=== PATIENT | male | born 1960 | race Caucasian/White ===

== ENCOUNTER 2025-08-08 08:52 | Inpatient (IN) | payer MEDICARE, SELFPAY ==
[2025-08-08] VITALS (12 sets, daily range): BP systolic 138–170; BP diastolic 93–114; PULSE 70–96; RESP 16–95; TEMP 36.5–36.9; O2SAT 94–99; BMI 39.5
--- NOTE | 2025-08-08 08:58 | EKG_ITS ---
[facility] Test Date: 2025-08-08 Pat Name: LUIS A ROCA Department: Room: - Gender: Male [employer] Business Analyst: : 1960 Requested By: ED Temporary Provider Order Number: [id number] Reading MD: ED Temporary Provider Measurements Intervals [place] Rate: 80 P: 21 IN: 214 QRS: -41 QRSD: 98 T: 68 QT: 366 QTc: 423 Interpretive Statements SINUS RHYTHM WITH FIRST DEGREE AV BLOCK LEFT AXIS DEVIATION [QRS AXIS < -30] No previous ECG available for comparison /[id number]
--- NOTE | 2025-08-08 09:47 | XR_ITS ---
EXAMINATION: PA chest single view TECHNIQUE: Upright PA chest single view Date and time: August 08, 2025, 10:00 a.m. INDICATIONS: Onset chest pain today. FINDINGS: Mild prominence left ventricle. Ectatic thoracic aorta. Mild vascular congestion. No lobar pneumonia or mary lou pulmonary edema IMPRESSION: Mild vascular congestion
--- NOTE | 2025-08-08 09:48 | EDRME_ITS ---
Rapid Medical Screening Exam [facility] Arrival date/time: 08/08/25 08:52 This is a 65-year-old male that comes into the emergency room with complaints of chest pain that started this morning. patient states his chest pain woke him up he describes it as a pressure type and tightness to his chest. Patient states he has never had this type of chest pain before. Patient does report some dizziness. Patient denies fever, cough, nausea, vomiting, diarrhea. Patient does have a history of atrial fibrillation and atrial flutter and has had ablations done in the past. Patient also has a history of pulmonary embolus. Patient checks his blood sugars regularly and states he is not diabetic. Patient does have a history of high blood pressure, hyperlipidemia. Patient states his last hemoglobin A1c was in the fives. I have greeted and performed a focused initial assessment of this patient. Initial appropriate labs ordered at this time. A comprehensive ED assessment and evaluation of the patient and analysis of all test and completion of medical decision making process will be conducted by additional ED provider. Chief Complaint: Chest Pain Time Seen by Provider: 08/08/25 09:42 Vital signs: Vital Signs Temperature 98.2 F 08/08/25 09:22 Pulse Rate 80 08/08/25 09:22 Respiratory Rate 18 08/08/25 09:22 Blood Pressure 154/93 H 08/08/25 09:22 Pulse Oximetry (%) 96 08/08/25 09:22 Oxygen Delivery Method Room Air 08/08/25 09:22 Exam: Alert and oriented, breathing even and unlabored, skin warm and dry Clinical Impression: Chest pain
[2025-08-08 10:12] LABS: Basophils # (Auto) 0.1 Thou/mm3 (0.0-0.2); Basophils % (Auto) 1 % (0-2.5); Eosinophils # (Auto) 0.1 Thou/mm3 (0.0-0.5); Eosinophils % (Auto) 1 % (0-10); Hematocrit 54.5 % (41.0-53.0); Hemoglobin 18.1 g/dL (13.5-16.0); Immature Granulocytes Auto 0.05 Thou/mm3 (0.00-0.00); Lymphocytes # (Auto) 2.6 Thou/mm3 (1.0-4.8); Lymphocytes % (Auto) 38 % (10-50); Mean Corpuscular HGB Conc 33.2 g/dl (31.0-37.0); Mean Corpuscular Hemoglobin 30.6 pg (25.0-35.0); Mean Corpuscular Volume 92 fL (80-100); Monocytes # (Auto) 0.8 Thou/mm3 (0.0-0.8); Monocytes % (Auto) 11 % (0-12); Neutrophils # (Auto) 3.3 Thou/mm3 (1.8-7.7); Neutrophils % (Auto) 48 % (37-80); Nucleated Red Blood Cell # 0.00 Thou/mm3 (0.00-0.00); Nucleated Red Blood Cell % 0 /100 WBC (0); Platelet Count 188 Thou/mm3 (140-440); RDW Standard Deviation 51.5 fL (35.1-43.9); Red Blood Count 5.92 Miln/mm3 (4.50-5.90); White Blood Count 6.8 Thou/mm3 (3.8-10.6)
[2025-08-08 10:24] LABS: INR 1.0 (0.9-1.3); Prothrombin Time 10.8 Seconds (9.0-12.2)
[2025-08-08 10:45] LABS: B-Type Natriuretic Peptide < 20 pg/mL (0-100)
[2025-08-08 10:58] LABS: Alanine Aminotransferase 218 U/L (10-49); Albumin, Serum 5.1 gm/dL (3.4-4.8); Albumin/Globulin Ratio 1.8 (1.2-2.2); Alkaline Phosphatase 68 U/L (46-116); Anion Gap 11 (7-16); Aspartate Amino Transferase 86 U/L (0-34); BUN/Creatinine Ratio 8 Ratio (12-20); Bilirubin,Total 0.7 mg/dL (0.3-1.2); Blood Urea Nitrogen 10 mg/dL (9-23); Calcium 10.0 mg/dL (8.3-10.6); Calcium (Corrected) 10.0 mg/dL (8.5-10.1); Carbon Dioxide 24.6 mMol/L (20.0-31.0); Chloride 106 mMol/L (98-107); Creatinine (Component) 1.2 mg/dL (0.6-1.3); Estimated Creatinine Clearance 87.7 mL/min (>60); Globulin 2.9 gm/dL (2.3-3.5); Glucose 118 mg/dL (74-106); Magnesium 2.0 mg/dL (1.6-2.6); Osmolality,Calculated 283 (275-295); Phosphorous 3.3 mg/dL (2.4-5.1); Potassium 4.9 mMol/L (3.4-5.1); Sodium 142 mMol/L (136-145); Total Protein 8.0 gm/dL (5.7-8.2); eGFR > 60 See Note
[2025-08-08 11:10] LABS: Troponin I 0.380 ng/mL (0.0-0.045)
--- NOTE | 2025-08-08 12:25 | EKG_ITS ---
[facility] Test Date: 2025-08-08 Pat Name: LUIS A ROCA Department: Room: - Gender: Male Social Research Assistant: : 1960 Requested By: Manny Paula Order Number: [id number] Reading MD: Manny Paula Measurements Intervals [place] Rate: 78 P: -12 [place]: 206 QRS: -41 QRSD: 105 T: 8 QT: 383 QTc: 436 Interpretive Statements SINUS RHYTHM LEFT AXIS DEVIATION [QRS AXIS < -30] Compared to ECG 08/08/2025 09:19:05 First degree AV block no longer present /[id number]/S0/[id number]
--- NOTE | 2025-08-08 12:36 | EDNOTE_ITS ---
ED Chest Pain RME/HPI General Chief Complaint: Chest Pain Stated Complaint: CHEST PAIN Time Seen by Provider: 08/08/25 09:42 Arrival date/time: 08/08/25 08:52 Limitations: no limitations RME / HPI RME / HPI narrative: 08/08/25 08:52 This is a 65-year-old male that comes into the emergency room with complaints of chest pain that started this morning. patient states his chest pain woke him up he describes it as a pressure type and tightness to his chest. Patient states he has never had this type of chest pain before. Patient does report some dizziness. Patient denies fever, cough, nausea, vomiting, diarrhea. Patient does have a history of atrial fibrillation and atrial flutter and has had ablations done in the past. Patient also has a history of pulmonary embolus. Patient checks his blood sugars regularly and states he is not diabetic. Patient does have a history of high blood pressure, hyperlipidemia. Patient states his last hemoglobin A1c was in the fives. I have greeted and performed a focused initial assessment of this patient. Initial appropriate labs ordered at this time. A comprehensive ED assessment and evaluation of the patient and analysis of all test and completion of medical decision making process will be conducted by additional ED provider. DR. YESSENIA GALLAGHER ED EVALUATION: 65-year-old male presents to the Emergency Department after waking up with chest pain located in the mid chest, described as dull in nature. He has a history of pulmonary embolism approximately 4 to 5 years ago, atrial fibrillation with flutter, prior angiogram many years ago, hypertension currently controlled, and hypercholesterolemia. He is accompanied by his . He denies diaphoresis or other associated symptoms. He is on Eliquis and took three aspirin tablets this morning. At presentation, he reports the pain has improved and is now mild with some residual tightness. Related Data Allergies Allergy/AdvReac Type Severity Reaction Status Date / Time Sulfa (Sulfonamide Allergy Verified 08/08/25 08:56 Antibiotics) Review of Systems Review of Systems Systems Reviewed: All systems reviewed, normal except as documented Past Medical History Past Medical History CARDIAC: Positive Cardiac Disorders, Atrial Fibrillation (A.FIB/A.FLUTTER; HX ABLATION), Hypercholesterolemia and Hypertension Surgical History SURGICAL: Positive of Shoulder Sx (R SHOULDER SURGERY) and Knee Sx (BILAT. KNEE REPLACEMENT) Social History SMOKING STATUS: Never smoker SUBSTANCE USE: does not use ALCOHOL: Never ED Exam General Limitations: Present no limitations General appearance: Present alert and in no apparent distress Head Head exam: Present atraumatic, normocephalic and normal inspection Eye Eye exam: Present normal appearance, PERRL and EOMI ENT ENT exam: Present normal exam, normal oropharynx and mucous membranes moist Neck Neck exam: Present normal inspection, full ROM and trachea midline Chest Chest inspection: Present normal inspection and symmetric chest wall rise Respiratory Respiratory exam: Present normal lung sounds bilaterally Cardiovascular Cardiovascular exam: Present regular rate, normal rhythm and normal heart sounds Abdominal Exam Abdominal exam: Present soft and normal bowel sounds Extremities Exam Extremities exam: Present normal inspection and full ROM Back Exam Back exam: Present normal inspection and full ROM Neurological Exam Neurological exam: Present alert, oriented X3 and CN II-XII intact Psychiatric Psychiatric exam: Present normal affect and normal mood Skin Skin exam: Present warm, dry, intact and normal color Course Quality Measures none Orders Category Date Time Status Patient Condition Routine Admission 08/08/25 15:[address] Screening NOW Care 08/08/25 14:13 Active Welder Pipe Making STAT Care 08/08/25 12:23 Active Continuous Pulse Oximetry ONCE Care 08/08/25 12:23 Active EKG (ED ONLY) *Do not use* NOW Care 08/08/25 08:58 Completed EKG (ED ONLY) *Do not use* NOW Care 08/08/25 12:25 Completed Insert IV STAT Care 08/08/25 12:23 Active NPO after Midnight ONCE Care 08/08/25 16:19 Active Notify provider NEEDED Care 08/08/25 15:15 Active Notify provider NOW Care 08/08/25 12:25 Active Notify provider NOW Care 08/08/25 14:28 Active Consult to Cardiology Stat Cons 08/08/25 15:30 Ordered Diet Cardiac Diet 08/08/25 Dinner Active Diet NPO after Midnight Diet 08/09/25 00:01 Active CA echo doppler complete Stat Exams 08/08/25 15:[address] angio chest Stat Exams 08/08/25 14:12 Completed EKG (ED Only) Stat Exams 08/08/25 08:58 Draft EKG (ED Only) Stat Exams 08/08/25 12:25 Draft XR chest 1V Stat Exams 08/08/25 09:47 Completed A1C [Glycohemoglobin w (eAG)] AM DRAW Lab 08/09/25 05:00 Ordered BNP [B-Type Natriuretic Peptide] Stat Lab 08/08/25 10:02 Completed CBC AM DRAW Lab 08/09/25 05:00 Ordered CBC AM DRAW Lab 08/10/25 05:00 Ordered CBC AM DRAW Lab 08/11/25 05:00 Ordered CBC Stat Lab 08/08/25 10:02 Completed Comprehensive Metabolic Panel AM DRAW Lab 08/09/25 05:00 Ordered Comprehensive Metabolic Panel AM DRAW Lab 08/10/25 05:00 Ordered Comprehensive Metabolic Panel AM DRAW Lab 08/11/25 05:00 Ordered Comprehensive Metabolic Panel Stat Lab 08/08/25 10:02 Completed Lipase Stat Lab 08/08/25 12:41 Completed Lipid Panel AM DRAW Lab 08/09/25 05:00 Ordered Mag [Magnesium] Stat Lab 08/08/25 10:02 Completed Magnesium AM DRAW Lab 08/09/25 05:00 Ordered Magnesium AM DRAW Lab 08/10/25 05:00 Ordered Magnesium AM DRAW Lab 08/11/25 05:00 Ordered PT [Prothrombin Time with INR] Stat Lab 08/08/25 10:02 Completed Partial Thromboplastin Time AM DRAW Lab 08/10/25 05:00 Ordered Partial Thromboplastin Time Stat Lab 08/08/25 12:41 Completed Phosphorous AM DRAW Lab 08/09/25 05:00 Ordered Phosphorous AM DRAW Lab 08/10/25 05:00 Ordered Phosphorous AM DRAW Lab 08/11/25 05:00 Ordered Phosphorous Stat Lab 08/08/25 10:02 Completed Prothrombin Time with INR AM DRAW Lab 08/10/25 05:00 Ordered TSH [Thyroid Stimulating Hormone] AM DRAW Lab 08/09/25 05:00 Ordered Troponin I Q6H Lab 08/08/25 15:39 Completed Troponin I Q6H Lab 08/09/25 03:30 Ordered Troponin I Stat Lab 08/08/25 10:02 Completed Troponin I Stat Lab 08/08/25 12:41 Completed Troponin I Urgent Lab 08/08/25 19:40 Ordered Troponin I Urgent Lab 08/08/25 23:35 Ordered Acetaminophen Tab [Tylenol Tab] Med 08/08/25 15:14 Active 650 mg PO Q6H PRN Acetaminophen Tab [Tylenol Tab] Med 08/08/25 15:14 Active 650 mg PO Q6H PRN Aspirin Chew Med 08/08/25 12:22 Discontinued 324 mg PO X1 ONE Aspirin [Ecotrin] Med 08/09/25 09:00 Active 81 mg PO QDAY Atorvastatin Calcium [Lipitor] Med 08/08/25 15:30 Active 40 mg PO HS DiphenhydrAMINE INJ [Benadryl Inj] Med 08/08/25 14:29 Discontinued 50 mg IVP X1 ONE Famotidine Inj [Pepcid Inj] Med 08/08/25 14:29 Discontinued 20 mg IVP X1 ONE HYDROcodone*/APAP 5/325 [Dawson 5/325] Med 08/08/25 15:14 Active 1 tab PO Q4HR PRN Heparin Inj Med 08/08/25 12:25 Discontinued 4,000 unit IV X1 ONE Heparin Inj Med 08/08/25 14:28 Discontinued 4,000 unit IV X1 ONE Heparin/D5w 25K 250 ML Ivpb [Heparin in D5w Ivpb] Med 08/08/25 14:30 Active 25,000 unit in 250 ml IV 7.35 units/kg/hr Labetalol* IV [Trandate IV] Med 08/08/25 15:50 Active 10 mg IVP Q4H PRN Levothyroxine Sodium [Synthroid] Med 08/09/25 06:00 Active 88 mcg PO ACBR Levothyroxine Sodium [Synthroid] Med 08/08/25 15:39 Discontinued 88 mcg PO X1 ONE Losartan [Cozaar] Med 08/08/25 15:39 Discontinued 100 mg PO X1 ONE Losartan [Cozaar] Med 08/08/25 17:09 Discontinued 100 mg PO X1 ONE Losartan [Cozaar] Med 08/08/25 15:45 Active 50 mg PO QDAY MethylPREDNISolone.* [SoluMEDROL Inj] Med 08/08/25 14:29 Discontinued 125 mg IVP X1 ONE Metoprolol Tartrate [Lopressor] Med 08/08/25 15:30 Active 50 mg PO BID Sodium Chloride 0.9% 1000 ml [Ns] 1,000 ml Med 08/08/25 15:15 Discontinued IV 75 mls/hr allopurinoL [Zyloprim] Med 08/08/25 15:45 Active 300 mg PO QDAY allopurinoL [Zyloprim] Med 08/08/25 15:39 Discontinued 300 mg PO X1 ONE hydrALAZINE INJ [Apresoline Inj] Med 08/08/25 14:45 Discontinued 10 mg IVP X1 ONE Code Status Routine Oth 08/08/25 15:14 Ordered Oxygen Delivery NOW RT 08/08/25 12:23 Active Vital Signs Vital signs: Vital Signs Temperature 98.2 F 08/08/25 09:22 Pulse Rate 80 08/08/25 09:22 Respiratory Rate 18 08/08/25 09:22 Blood Pressure 154/93 H 08/08/25 09:22 Pulse Oximetry (%) 96 08/08/25 09:22 Oxygen Delivery Method Room Air 08/08/25 09:22 Chest Pain MDM Narrative MDM Narrative:: I, Christina Silva, am scribing for and in the presence of Dr. Liu. 65-year-old male with chest pain on awakening and significant cardiac and thromboembolic history. Symptoms improving but given history of PE, atrial fibrillation, and CAD risk factors, workup initiated to evaluate for cardiac ischemia and thromboembolic disease. Differential diagnoses include ACS, PE recurrence, and noncardiac chest pain. 0931: Consulted with Dr. Chung about EKG. He states that it does not look like a STEMI. My interpretation: EKG performed at 0919 hours, normal sinus rhythm, rate 80, left axis deviation, no ectopy, Q wave in leads 2, 3, and AVF, questionable elevation in the precordial leads but consulted with Dr. Chung and he states that it does not look like a STEMI. My interpretation: EKG #2 performed at 1300 hours, normal sinus rhythm, rate 78, left axis deviation, no ectopy, no signs of acute ischemia, Q wave in leads 2, 3, and AVF 1603: Discussed test HPI, PMHx, lab, radiology results and/or management with resident working with the hospitalist. Will admit for further evaluation and management. Accepts patient for admission. Patient data External records reviewed:: [facility] previous records Clinical information provided by:: patient and spouse Social determinants that could affect healthcare access:: none Patient has the following chronic illnesses:: He has a history of pulmonary embolism approximately 4 to 5 years ago, atrial fibrillation with flutter, prior angiogram many years ago, hypertension currently controlled, and hypercholesterolemia. He is on Eliquis and took three aspirin tablets this morning. How is presenting disease/condition affected by chronic disease/condition?: exacerbated by Evaluation data The following diagnostics were reviewed and interpreted by me:: lab results, radiology exam(s) and EKG tracing(s) (see MDM narrative above for both EKG interpretations) Lab and/or radiology exams considered but not ordered:: none Interpretation Summary: See [facility] narrative above. RADIOLOGY Procedure(s): XR chest 1V Accession Number(s): [id number] cc: Dell Park MD; NO PRIMARY/FAMILY,PHYSICIAN; Sarai Rousseau NP~ EXAMINATION: PA chest single view TECHNIQUE: Upright PA chest single view Date and time: August 08, 2025, 10:00 a.m. INDICATIONS: Onset chest pain today. FINDINGS: Mild prominence left ventricle. Ectatic thoracic aorta. Mild vascular congestion. No lobar pneumonia or mary lou pulmonary edema IMPRESSION: Mild vascular congestion Dictated By: Dell Park MD Procedure(s): CT angio chest Accession Number(s): [id number] cc: Dell Park MD; NO PRIMARY/FAMILY,PHYSICIAN; Manny Liu MD~ Examination: CTA chest with intravenous contrast 2-D reconstructions 3-D reconstructions, vascular Date and time of exam: August 08, 2025, 1513 hours INDICATIONS: Chest pain shortness of breath beginning 1 week ago, history pulmonary artery emboli CTDI: vol (mGy) 35.4 DLP: (mGycm) 617 Technique: Multiple axial sections of the thorax have been obtained. 3 mm slice thickness, from below the hemidiaphragms to above the apices of the lungs. Mediastinal and lung density settings have been obtained. 2-D sagittal and coronal reconstructions. 3-D angiographic renderings, 3-D volume renderings, 3D post processing, vascular maximum intensity projections obtained. Contrast administered is 100 cc Isovue-370. Low dose protocols were performed. One or more of the following dose reduction techniques were used; automated exposure control, adjustment of the mA and/or KV according to patient size, use of iterative reconstruction technique. Findings: No thoracic aortic aneurysmal dilatation or dissection Pulmonary artery segments are not enlarged No pulmonary artery emboli Moderate vascular congestion No lobar pneumonia Minimal pleural disease Liver is irregular in contour with fatty infiltration Spleen is not enlarged No adrenal mass Left renal cyst 4 cm Abdominal aorta is not enlarged Moderate thoracic spondylosis IMPRESSION: No thoracic aortic aneurysmal dilatation or dissection Negative for pulmonary artery emboli No pneumonia or pulmonary edema Minimal pleural disease Suspicious for primary palisading disease Dictated By: Dell Park MD Medications / Prescriptions Medications or Prescriptions considered but not ordered:: none Medication administrations:: Medication Administration History Acetaminophen (Acetaminophen 325 Mg Tablet) 650 mg PO Q6H PRN PRN Reason: Fever >100.4 Stop: 09/07/25 15:13 Acetaminophen (Acetaminophen 325 Mg Tablet) 650 mg PO Q6H PRN PRN Reason: PAIN SCALE 1-3 (mild Stop: 09/07/25 15:13 Hydrocodone Bitart/Acetaminophen (Hydrocodone/Apap 5/325 Tablet) 1 tab PO Q4HR PRN PRN Reason: PAIN SCALE 4-6 (Moderate Stop: 08/13/25 15:13 Allopurinol (Allopurinol 100 Mg Tablet) 300 mg PO QDAY TAWANNA Stop: 09/07/25 15:44 Aspirin (Aspirin Ec 81 Mg Tabec) 81 mg PO QDAY TAWANNA Stop: 09/08/25 08:59 Atorvastatin Calcium (Atorvastatin Calcium 10 Mg Tablet) 40 mg PO HS TAWANNA Stop: 09/07/25 15:29 Heparin Sodium/Dextrose (Heparin In D5w Ivpb) 25,000 unit in 250 mls @ 10.002 mls/hr IV .Q24H TAWANNA; Protocol Stop: 08/22/25 14:29 Last Admin: 08/08/25 15:39 Dose: 7.35 units/kg/hr, 10.002 mls/hr Documented By: EF Co-signed By: DO Labetalol HCl (Labetalol Inj 5 Mg/Ml Vial 4 Ml) 10 mg IVP Q4H PRN PRN Reason: SBP>180 or DBP>110 Stop: 09/07/25 15:49 Levothyroxine Sodium (Levothyroxine Sodium 88 Mcg Tablet) 88 mcg PO ACBR TAWANNA Stop: 09/08/25 05:59 Losartan Potassium (Losartan Potassium 25 Mg Tablet) 50 mg PO QDAY TAWANNA Stop: 09/07/25 15:44 Metoprolol Tartrate (Metoprolol Tartrate 25 Mg Tablet) 50 mg PO BID TAWANNA Stop: 09/07/25 15:29 Discontinued Medications Allopurinol (Allopurinol 100 Mg Tablet) 300 mg PO X1 ONE Stop: 08/08/25 15:40 Last Admin: 08/08/25 16:10 Dose: Not Given Documented By: GM Non-Admin Reason: Cancelled by Provider Aspirin (Aspirin 81 Mg Chew) 324 mg PO X1 ONE Stop: 08/08/25 12:23 Last Admin: 08/08/25 12:55 Dose: Not Given Documented By: GM Non-Admin Reason: Discontinued Diphenhydramine HCl (Diphenhydramine Inj 50 Mg/Ml Vial) 50 mg IVP X1 ONE Stop: 08/08/25 14:30 Last Admin: 08/08/25 14:51 Dose: 50 mg Documented By: GM Famotidine (Famotidine Inj 10 Mg/Ml Vial 2 Ml) 20 mg IVP X1 ONE Stop: 08/08/25 14:30 Last Admin: 08/08/25 14:52 Dose: 20 mg Documented By: GM Heparin Sodium (Porcine) (Heparin Sod Inj 5000 Unit/Ml Vial) 4,000 unit IV X1 ONE; Protocol Stop: 08/08/25 12:26 Last Admin: 08/08/25 12:55 Dose: Not Given Documented By: GM Non-Admin Reason: Discontinued Heparin Sodium (Porcine) (Heparin Sod Inj 5000 Unit/Ml Vial) 4,000 unit IV X1 ONE; Protocol Stop: 08/08/25 14:29 Last Admin: 08/08/25 15:38 Dose: 4,000 unit Documented By: EF Co-signed By: DO Hydralazine HCl (Hydralazine Inj 20 Mg/Ml Vial) 10 mg IVP X1 ONE Stop: 08/08/25 14:46 Sodium Chloride (Ns) 1,000 mls @ 75 mls/hr IV .[id number] TAWANNA Stop: 09/07/25 15:14 Last Admin: 08/08/25 16:10 Dose: Not Given Documented By: GM Non-Admin Reason: Discontinued Levothyroxine Sodium (Levothyroxine Sodium 88 Mcg Tablet) 88 mcg PO X1 ONE Stop: 08/08/25 15:40 Last Admin: 08/08/25 16:10 Dose: Not Given Documented By: GM Non-Admin Reason: Cancelled by Provider Losartan Potassium (Losartan Potassium 25 Mg Tablet) 100 mg PO X1 ONE Stop: 08/08/25 15:40 Last Admin: 08/08/25 16:11 Dose: Not Given Documented By: GM Non-Admin Reason: Cancelled by Provider Losartan Potassium (Losartan Potassium 25 Mg Tablet) 100 mg PO X1 ONE Stop: 08/08/25 17:10 Methylprednisolone Sodium Succinate (Methylprednisolone Sod Succ 62.5 Mg/Ml 2ml Vial) 125 mg IVP X1 ONE Stop: 08/08/25 14:30 Last Admin: 08/08/25 14:49 Dose: 125 mg Documented By: GM see above Consultations Consultation(s) initiated? (list below): Yes Consultation #1 (Physician, Specialty, Details): See MDM narrative above. Diagnosis Chest Pain Differential Diagnosis: other (ACS, PE recurrence, and noncardiac chest pain) Most likely diagnosis given after review of the tests above:: NM Elevated troponin Admission Indicated Admission indicated?: indicated Admission Request Was there a request for admission?: Yes Admission Attestation Admission request attestation: Discussed case with [] from Hospitalist service regarding admission. Discussed patients ED course, exam findings, labs, and radiology results. The Hospitalist [agrees,declines] to accept the patient for admission. Disposition Plan Disposition Plan: Admit Critical Care Time Critical Care Time Critical Care Time: Yes Total Critical Care Time (min.): 45 Attestation: The high probability of sudden, clinically significant deterioration in the patient?s condition required the highest level of my preparedness to intervene urgently. The services I provided to this patient were to treat and/or prevent clinically significant deterioration. Services included the following: chart data review, reviewing nursing notes and/or old charts, documentation time, learning and development consultant collaboration regarding findings and treatment options, medication orders and management, direct patient care, vital sign assessments and ordering, interpreting and reviewing diagnostic studies and lab tests. Aggregate critical care time includes only time during which I was engaged in work directly related to the patient?s care, as described above, whether at bedside or elsewhere in the Emergency Department. It did not include time spent performing other reported procedures or the services of residents, students, nurses or physician assistants. Discharge Plan Plan Patient Disposition: Admit Acute Care w/in Hospital Prescriptions/Referrals Referrals: No Primary/Family,Physician [Primary Care Provider] - In 1 week Problem List Clinical Impression: Myocardial infarct, Elevated troponin Patient/Caregiver Discharge Instructions Print Language: Hungarian Stand Alone Forms: [facility]ena Award Info., Patient Portal Info Letter
[2025-08-08 13:05] LABS: Lipase 31 U/L (12-53); Partial Thromboplastin Time 25.8 Seconds (22.0-36.0)
[2025-08-08 13:10] LABS: Troponin I 0.843 ng/mL (0.0-0.045)
--- NOTE | 2025-08-08 14:02 | PD.IMCONS ---
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[place], chronic anticoagulation with Eliquis Prior history of pulmonary embolism Patient follows up with retail general manager in [place] informs me he had a stress test done last year which was negative Patient was seen in the emergency room with a complaint of chest tightness Initial EKG does not show any acute ST-T wave changes Patient was positive troponin 0.38 Cardiology consultation requested cc:: cc: Meds Home Medications and Allergies Allergies Allergy/AdvReac Type Severity Reaction Status Date / Time Sulfa (Sulfonamide Allergy Verified 08/08/25 08:56 Antibiotics) Exam Vital Signs Temp Pulse Resp BP Pulse Ox O2 Del Method 98.4 F 81 17 165/94 H 95 Room Air 08/08/25 12:24 08/08/25 12:24 08/08/25 12:24 08/08/25 12:24 08/08/25 12:24 08/08/25 12:24 Routine HEENT Exam Head: Present normocephalic and atraumatic Eye: Present EOMI and PERRL ENT: Present mucous membranes moist Routine Neck Exam Neck: Present supple and trachea midline Routine Respiratory Exam Respiratory: Present chest non-tender, lungs clear, normal breath sounds and no resp distress Routine Cardiovascular Exam Cardiovascular: Present RRR Routine Abdominal Exam Abdominal: Present soft and normoactive bowel sounds Routine Extremities Exam Extremities: Present full ROM Routine Skin Exam Skin: Present intact, dry and warm Routine Neurological Exam Neurological: Present alert, oriented X3 and CN II-XII intact Routine Psychiatric Exam Psychiatric: Present normal affect and normal thought process Results Labs 08/08/25 10:02 08/08/25 10:02 Labs: Short CBC 08/08/25 Range/Units 10:02 WBC 6.8 (3.8-10.6) Thou/mm3 Hgb 18.1 H* (13.5-16.0) g/dL Hct 54.5 H (41.0-53.0) % Plt Count 188 (140-440) Thou/mm3 BMP 08/08/25 10:02 Sodium 142 Potassium 4.9 Chloride 106 Carbon Dioxide 24.6 BUN 10 Creatinine 1.2 Glucose 118 H Calcium 10.0 Cardiac Enzymes 08/08/25 08/08/25 Range/Units 10:02 12:41 Troponin I 0.380 H* 0.843 H* D (0.0-0.045) ng/mL Liver Function 08/08/25 Range/Units 10:02 Total Bilirubin 0.7 (0.3-1.2) mg/dL AST 86 H (0-34) U/L ALT 218 H (10-49) U/L Alkaline Phosphatase 68 (46-116) U/L Albumin 5.1 H (3.4-4.8) gm/dL Assessment and Plan Assessment and plan (1) Chest pain: Status: Acute (2) Elevated troponin: Status: Acute (3) Hypertension: Status: Acute (4) Hyperlipidemia: Status: Acute (5) History of atrial fibrillation: Status: Acute (6) Factor V deficiency: Status: Acute (7) History of pulmonary embolism: Status: Acute (8) Polycythemia: Status: Acute Additional Assessment & Plan Additional Plan: Patient was seen in the emergency room Appears comfortable No chest pain currently Recalls having chest pain in the morning described as tightness EKG does not show any acute ST-T wave changes Positive troponin is 0.3 Continue to rule out with serial troponins and EKGs Resume patient's home medication Patient's hemoglobin is 18 hematocrit is 54.5 needs further evaluation
--- NOTE | 2025-08-08 14:12 | XR_ITS ---
Examination: CTA chest with intravenous contrast 2-D reconstructions 3-D reconstructions, vascular Date and time of exam: August 08, 2025, 1513 hours INDICATIONS: Chest pain shortness of breath beginning 1 week ago, history pulmonary artery emboli CTDI: vol (mGy) 35.4 DLP: (mGycm) 617 Technique: Multiple axial sections of the thorax have been obtained. 3 mm slice thickness, from below the hemidiaphragms to above the apices of the lungs. Mediastinal and lung density settings have been obtained. 2-D sagittal and coronal reconstructions. 3-D angiographic renderings, 3-D volume renderings, 3D post processing, vascular maximum intensity projections obtained. Contrast administered is 100 cc Isovue-370. Low dose protocols were performed. One or more of the following dose reduction techniques were used; automated exposure control, adjustment of the mA and/or KV according to patient size, use of iterative reconstruction technique. Findings: No thoracic aortic aneurysmal dilatation or dissection Pulmonary artery segments are not enlarged No pulmonary artery emboli Moderate vascular congestion No lobar pneumonia Minimal pleural disease Liver is irregular in contour with fatty infiltration Spleen is not enlarged No adrenal mass Left renal cyst 4 cm Abdominal aorta is not enlarged Moderate thoracic spondylosis IMPRESSION: No thoracic aortic aneurysmal dilatation or dissection Negative for pulmonary artery emboli No pneumonia or pulmonary edema Minimal pleural disease Suspicious for primary palisading disease
[2025-08-08] MEDS: MethylPREDNISolone SOD SUCC 62.5 MG/ML 2ML VIAL 125 MG IVP (14:49)
[2025-08-08] MEDS: FAMOTIDINE INJ 10 MG/ML VIAL 2 ML 20 MG IVP (14:52)
--- NOTE | 2025-08-08 15:14 | PD.RESHP ---
Documentation for date of: 08/08/25 [facility] History of Present Illness Chief complaint: Chest pain History of present illness: History of present illness: Patient is a 65 yo M with PMH of HTN, HLD, DM, A-fib, A-flutter, PE, hypothyroidism, gout, low testosterone, BRYAN presenting to the ED on 08/08 with new-onset chest pain that began on 08/08 in the AM with 1 continuous episode that woke him up from sleep. Patient has never had this type of chest pain before (cramping pain, not reproducible on palpation); it is radiating to L arm and does not feel like previous PEs. Endorses some dizziness, and improved with 3 aspirin before coming to ED. Patient denies diaphoresis, fever, cough, nausea, vomiting, diarrhea, orthopnea, positional pain. ED course: EKG #1 0919- normal sinus rhythm, rate 80, left axis deviation, no ectopy, Q wave in leads 2, 3, and AVF, questionable elevation in the precordial leads but consulted with Dr. Chung who states it does not look like a STEMI. EKG #2- 1300, normal sinus rhythm, rate 78, left axis deviation, no ectopy, no signs of acute ischemia, Q wave in leads 2, 3, and AVF Labs remarkable for Hgb 18.1 (known polycythemia 2/2 testosterone treatment, patient is regular blood donor every 6 weeks) Troponin- 0.38 on admission, followed by 0.843 CXR- Mild vascular congestion Patient admitted for NSTEMI vs PE workup. Pain improved with nitro PMH: HTN, HLD, DM, A-fib, A-flutter, hypothyroidism, low testosterone, gout, PE, BRYAN PSH: bilateral knee surgery, R shoulder surgery, ablations for a-fib/a-flutter Allergies: Sulfa Social history: Previous smoker, rare EtOH, never drugs Meds: To be reconciled Review of Systems Review of Systems Narrative Review of Systems: General: Denies fevers or chills HEENT: Denies congestion or sore throat Heart: Endorses chest pain not reproducible by palpation and radiating to L arm Lungs: Denies shortness of breath or cough Abdomen: Denies diarrhea, nausea or vomiting, constipation, BRBPR, melena Genitourinary: Denies frequency, urgency, dysuria, hematuria Musculoskeletal: Denies joint pain, denies muscular pain Neurology: Denies numbness, tingling ROS otherwise negative except what is mentioned above. Exam Vital Signs Temp Pulse Resp BP Pulse Ox O2 Del Method 97.9 F 76 16 170/100 H 95 Room Air 08/08/25 14:34 08/08/25 14:43 08/08/25 14:43 08/08/25 14:34 08/08/25 14:34 08/08/25 14:34 Narrative Exam General: A/O x3, no acute distress, well-nourished, well-developed, obese Eyes: PERRL, EOMI. Anicteric, vision grossly intact. Ears: No ear pain, no ear discharge, Hearing grossly intact. Nose: No nasal discharge. Mouth/Throat: Moist mucous membranes, no redness, no lesions. Neck: Neck supple, non-tender, no cervical lymphadenopathy. Lungs: Clear JOSE to auscultation and percussion, No accessory muscle use. Cardio: Normal S1/S2, regular rhythm, no murmurs, no JVD or carotid bruits, no chest pain on palpation Abdomen: Soft, non-tender, no palpable masses, peristalsis present, no guarding or rebound. Extremities: Symmetrical, no significant deformities, no peripheral edema , non-tender, peripheral pulses present. Skin: No rashes, no lesions, warm to touch. Neuro: No focal neurological deficits. Psych: Cooperative, appropriate mood and effect. Results: Labs 08/09/25 05:03 08/09/25 05:03 Labs: Short CBC 08/08/25 Range/Units 10:02 WBC 6.8 (3.8-10.6) Thou/mm3 Hgb 18.1 H* (13.5-16.0) g/dL Hct 54.5 H (41.0-53.0) % Plt Count 188 (140-440) Thou/mm3 BMP 08/08/25 10:02 Sodium 142 Potassium 4.9 Chloride 106 Carbon Dioxide 24.6 BUN 10 Creatinine 1.2 Glucose 118 H Calcium 10.0 Cardiac Enzymes 08/08/25 08/08/25 Range/Units 10:02 12:41 Troponin I 0.380 H* 0.843 H* D (0.0-0.045) ng/mL Liver Function 08/08/25 Range/Units 10:02 Total Bilirubin 0.7 (0.3-1.2) mg/dL AST 86 H (0-34) U/L ALT 218 H (10-49) U/L Alkaline Phosphatase 68 (46-116) U/L Albumin 5.1 H (3.4-4.8) gm/dL Quality Measures Quality Measures none Advance care planning discussed with:: other Medications Home Medications and Allergies Home Medications ?Medication ?Instructions ?Recorded ?Confirmed ?Type allopurinol 300 mg tablet 300 mg PO DAILY 08/08/25 08/08/25 History apixaban 5 mg tablet (Eliquis) 5 mg PO Q12H 08/08/25 08/08/25 History diltiazem HCl 180 mg 180 mg PO BID 08/08/25 08/08/25 History capsule,extended release 24 hr, controlled (DILT-XR) levothyroxine 88 mcg tablet 88 mcg PO DAILY 08/08/25 08/08/25 History losartan 100 mg tablet 100 mg PO DAILY 08/08/25 08/08/25 History metformin 1,000 mg tablet 1,000 mg PO BID 08/08/25 08/08/25 History rosuvastatin 5 mg tablet 5 mg PO .BEFORE BED TIME 08/08/25 08/08/25 History thyroid (pork) 120 mg tablet (SUPERVISING NURSE 120 mg PO QDAY 08/08/25 08/08/25 History Thyroid) Allergies Allergy/AdvReac Type Severity Reaction Status Date / Time Sulfa (Sulfonamide Allergy Verified 08/08/25 08:56 Antibiotics) Visit Medications Heparin Sodium/Dextrose (Heparin In D5w Ivpb) 25,000 unit in 250 mls @ 10.002 mls/hr IV .Q24H [facility]; Protocol Stop: 08/22/25 14:29 Discontinued Medications Aspirin (Aspirin 81 Mg Chew) 324 mg PO X1 ONE Stop: 08/08/25 12:23 Last Admin: 08/08/25 12:55 Dose: Not Given Diphenhydramine HCl (Diphenhydramine Inj 50 Mg/Ml Vial) 50 mg IVP X1 ONE Stop: 08/08/25 14:30 Last Admin: 08/08/25 14:51 Dose: 50 mg Famotidine (Famotidine Inj 10 Mg/Ml Vial 2 Ml) 20 mg IVP X1 ONE Stop: 08/08/25 14:30 Last Admin: 08/08/25 14:52 Dose: 20 mg Heparin Sodium (Porcine) (Heparin Sod Inj 5000 Unit/Ml Vial) 4,000 unit IV X1 ONE; Protocol Stop: 08/08/25 12:26 Last Admin: 08/08/25 12:55 Dose: Not Given Heparin Sodium (Porcine) (Heparin Sod Inj 5000 Unit/Ml Vial) 4,000 unit IV X1 ONE; Protocol Stop: 08/08/25 14:29 Hydralazine HCl (Hydralazine Inj 20 Mg/Ml Vial) 10 mg IVP X1 ONE Stop: 08/08/25 14:46 Methylprednisolone Sodium Succinate (Methylprednisolone Sod Succ 62.5 Mg/Ml 2ml Vial) 125 mg IVP X1 ONE Stop: 08/08/25 14:30 Last Admin: 08/08/25 14:49 Dose: 125 mg Assessment & Plan Plan Patient is a 65 yo M with PMH of HTN, HLD, DM, A-fib, A-flutter, PE, hypothyroidism, gout, low testosterone, BRYAN presenting to the ED on 08/08 with new-onset chest pain. Patient admitted for NSTEMI vs PE workup. #ACS vs PE #CAD #Hx of A-fib #Hx of A-flutter #Hx of PE Patient had cramping pain, not reproducible on palpation radiating to L arm since this AM. EKG #1 0919- normal sinus rhythm, rate 80, left axis deviation, no ectopy, Q wave in leads 2, 3, and AVF, questionable elevation in the precordial leads but consulted with Dr. Chung who states it does not look like a STEMI. EKG #2- 1300, normal sinus rhythm, rate 78, left axis deviation, no ectopy, no signs of acute ischemia, Q wave in leads 2, 3, and AVF Troponin- 0.38 on admission, followed by 0.843 Patient has had a-fib and a-flutter with ablations on Eliquis Plan: Cardiology consulted, likely NSTEMI- will do cath in AM On heparin protocol Aspirin 325 given, on 81 qday maintenance Atorvastatin 40 daily Metoprolol tartrate 50 BID Losartan 50 Trend troponin q4h until peaked CTA taken, awaiting read Echo ordered #Hx DM Patient takes metformin at home Plan: ISS step 1 #Polycythemia #Low testosterone on treatment #BRYAN Plan: Continue with outpatient phlebotomies CPAP at night #Hx HTN Plan: As above, plus labetalol 10 q4h prn if SBP > 180 or DBP > 110 #Hx gout #Hx hypothyroidism Resume home allopurinol and levothyroxine Disposition: Tele DVT prophylaxis: Heparin protocol GI prophylaxis: Diet: Cardiac, NPO after midnight Lines: PIV CODE STATUS: Full This case was discussed with my attending physician, Dr. Powell, and senior resident, Dr. Dean. Senior Resident Attestation: The patient is a 65-year-old gentleman with past medical history significant for hypertension, hyperlipidemia, diabetes mellitus type 2, atrial fibrillation and atrial flutter, pulmonary embolism, hypothyroidism, gout, low testosterone on testosterone therapy, BRYAN who presented to ED on 08/08/2025 with chief complaint of chest pain that began on the morning, and woke him up from sleep, he reported never having similar episode of chest pain, reported radiating to left arm, and improved with 3 aspirin before coming to ED. The pain is not positional, not reproducible, and denies any orthopnea or PND, nausea or vomiting or diaphoresis or fever. The patient's troponin was 0.38 that trended up to 0.843, and Dr. Chung was consulted, who believed that the EKG was not significant for STEMI, and he believed it would be likely an NSTEMI type I. The patient was started on heparin drip, 325 mg aspirin chewable given in the ED, started on metoprolol titrate, losartan, atorvastatin, and CTA chest was negative for pulmonary embolism. Will continue to trend troponin until delta is achieved, and patient will undergo left cardiac cath by Dr. Chung tomorrow AM. We will keep the patient n.p.o. after midnight. The patient also has history of obstructive sleep apnea, and we will continue with CPAP at night. A1c, lipid panel and TSH ordered for am labs. I discussed with and supervised the internet manager physician involved in the care of this patient. I personally saw and examined the patient and discussed the assessment and plan with the entire medicine team, including my attending. I agree with the assessment and plan as documented above. Mario Dean MD PGY3 Internal Medicine Ion Mendoza Russo, PGY1 Attending Provider Attestation/Addendum I have seen and examined the patient. I was physically present for the saldana portions of the services provided including history, physical exam, diagnosis, treatment plans and orders. I agree with assessment and plan of care as documented by residents. After examination of the patient and review of the clinical data I feel that this patient needs admission to the hospital for further treatment/evaluation. Even though this this note was carefully revised there may still be minor errors in [employer] manager due to voice recognition software. Dale Powell MD
--- NOTE | 2025-08-08 15:28 | ECHO_ITS ---
Patient Info Name: David Johnson Age: 65 years : 1960 Gender: Male Ht: 185 cm Wt: 136 kg BSA: 2.70 m2 BP: 170 / 100 mmHg HR: 81 bpm Exam Date: 08/08/2025 4:26 PM Admit Date: 08/08/2025 Site: [facility] Room Number: ED 10 Patient Status: I Technical Quality: Poor Exam Type: CA echo doppler complete Reason for Poor Study: body habitus Gold Leaf Laborer: Domenica Salazar Ordering Physician: Aaron Russo Study Info Indications Suspected AK - Primary Location: S2NX Left Ventricular Outflow Tract Name Value Normal LVOT Doppler LVOT Peak Velocity 108 cm/s LVOT Mean Gradient 3 mmHg LVOT VTI 27 cm LVOT VTI/AV VTI Ratio 0.8 Pulmonic Valve Name Value Normal PV Doppler PV Peak Velocity 110 cm/s Mitral Valve Name Value Normal MV Doppler MV Mean Gradient 1 mmHg MV Decel [place] 441 cm/s2 MV PHT 40 ms MV Area (PHT) 5.5 cm2 4.0-5.0 MV Diastolic Function MV E Peak Velocity 61 cm/s MV A Peak Velocity 89 cm/s MV E/A 0.7 MV Annular TDI MV Septal e' Velocity 6.6 cm/s MV E/e' (Septal) 9.1 MV Lateral e' Velocity 4.2 cm/s MV E/e' (Lateral) 14.3 MV e' Average 5.44 cm/s MV E/e' (Average) 11.7 Tricuspid Valve Name Value Normal TV Regurgitation Doppler TR Peak Velocity 148 cm/s Estimated PAP/RSVP RA Pressure 8 mmHg <=5 PA Systolic Pressure 17 mmHg <36 RV Systolic Pressure 17 mmHg <36 Aortic Valve Name Value Normal AV 2D/MM AV Cusp Sep (MM) 2.4 cm AV Doppler AV Peak Velocity 135 cm/s AV Mean Gradient 5 mmHg AV VTI 32 cm AV DI (Bj) 0.80 Ventricles Name Value Normal LV Dimensions 2D/MM IVS Diastolic Thickness (2D) 1.3 cm 0.6-1.0 LVID Diastole (2D) 5.4 cm 4.2-5.8 LVIW Diastolic Thickness (2D) 1.8 cm 0.6-1.0 LVID Systole (2D) 4.0 cm 2.5-4.0 LV Mass (2D Cubed) 380.54 g 88.00-224.00 LV Mass Index (2D Cubed) 141 g/m2 49-115 Relative Wall Thickness (2D) 0.67 <=0.42 IVS/LVIW Diastolic Thickness (2D) 0.72 0.00-1.50 LV Fractional Shortening/Ejection Fraction 2D/MM LV Fractional Shortening (2D) 26 % 25-43 LV EF (2D Teichholz) 50 % Atria Name Value Normal LA Dimensions LA Volume (4C A-L) 154 ml Left Ventricle Left ventricular chamber dimension is normal. Left ventricular systolic function is normal with visually estimated ejection fraction of 50-55%. There is mild concentric hypertrophy noted in the left ventricle. Left ventricular segmental wall motion is normal. There is grade I diastolic dysfunction in the left ventricle. Right Ventricle Right ventricular chamber dimension is normal. Right ventricular systolic function is normal. Left Atrium Left atrial chamber dimension is severely enlarged. Right Atrium Right atrial chamber dimension is normal. Aortic Valve The aortic valve is trileaflet. There is no aortic valve sclerosis. There is no aortic valve stenosis. There is no aortic valve regurgitation. Pulmonic Valve The pulmonic valve is normal. There is no pulmonic valve stenosis. There is no pulmonic regurgitation. Mitral Valve The mitral valve has normal leaflets. There is no mitral valve stenosis. There is mild mitral valve regurgitation. Tricuspid Valve The tricuspid valve leaflets are normal. There is no tricuspid valve stenosis. There is mild tricuspid valve regurgitation. No pulmonary hypertension, estimated pulmonary arterial systolic pressure is 17 mmHg and systemic blood pressure of 170 mmHg in systole. Pericardium/Pleural The pericardium appears normal. There is no pericardial effusion. No pleural effusion visualized. Inferior Vena Cava Normal inferior vena cava with >50% collapse upon inspiration consistent with normal right atrial pressure, 8 mmHg. Aorta The aortic measurements are indexed to age and body surface area. The aortic root at the sinus of Valsalva is not well visualized. The prox ascending aorta is not well visualized. Summary 1. Left ventricle size is normal and systolic function is normal. Estimated ejection fraction is 50-55%. There is grade I diastolic dysfunction. There is mild concentric hypertrophy noted. 2. The right ventricle is not well visualized. 3. Right ventricle chamber size is normal and systolic function is normal. Estimated RVSP is 17 mmHg. 4. There is mild mitral and tricuspid valve regurgitation. 5. The left atrium is severely enlarged. The right atrium is normal. 6. Normal IVC with estimated RA pressure 8 mmHg. Report Signatures Finalized by Apolinar Chung on 08/10/2025 08:46 AM
[2025-08-08] MEDS: HEPARIN SOD INJ 5000 UNIT/ML VIAL 4000 UNIT IV ×2 (15:38→23:57)
[2025-08-08] MEDS: Heparin/D5w 25K 250 ML Ivpb 25,000 UNIT/250 ML BAG 10.002 UNIT IV (15:39)
[2025-08-08 16:34] LABS: Troponin I 2.166 ng/mL (0.0-0.045)
--- NOTE | 2025-08-08 16:49 | PRELIM_ITS ---
CT angiogram of the chest with intravenous contrast (axial sections with sagittal and coronal reformats) August 08, 2025 1513 hours Clinical History: Chest pain Technique:Helical axial sections with sagittal and coronal reformats of the chest were obtained with intravenous contrast. Iterative reconstruction technique was employed to reduce patient radiation exposure. 3D/MIP reconstructed images were also provided. Radiation Dose: Total exam DLP 617 mGy/cm. Compared with the prior study dated Findings: There is no filling defect within the pulmonary artery divisions to suggest pulmonary thromboembolism. The mediastinum demonstrates no evidence of mass or lymphadenopathy. The thoracic aorta is unremarkable. There is no pericardial effusion. Bibasilar atelectasis is seen. No evidence of pleural effusion or pneumothorax. A small hiatal hernia is present. Degenerative changes are identified in the spine. There is fatty infiltration of the liver. There is a left renal cyst, measuring 4.5 cm. Impression: No CT evidence of pulmonary thromboembolism or other acute intrathoracic pathology. Report Electronically Signed By: Lawrence Gutiérrez 08/08/2025 4:48:39 PM [EST]
[2025-08-08] MEDS: METOPROLOL TARTRATE 25 MG TABLET 50 MG PO ×2 (17:48→21:36)
[2025-08-08] MEDS: hydrALAZINE INJ 20 MG/ML VIAL 10 MG IVP (17:58)
[2025-08-08 20:00] LABS: Troponin I 1.929 ng/mL (0.0-0.045)
[2025-08-08 23:42] LABS: Partial Thromboplastin Time 27.1 Seconds (22.0-36.0)
[2025-08-08 23:46] LABS: Troponin I 1.917 ng/mL (0.0-0.045)
[2025-08-09] VITALS (11 sets, daily range): BP systolic 128–153; BP diastolic 78–95; PULSE 81–100; RESP 14–95; TEMP 35.9–36.4; O2SAT 92–95; BMI 40.8
[2025-08-09 03:34] LABS: Troponin I 2.523 ng/mL (0.0-0.045)
[2025-08-09] MEDS: LEVOTHYROXINE SODIUM 88 MCG TABLET PO (05:31)
[2025-08-09 06:13] LABS: Basophils # (Auto) 0.0 Thou/mm3 (0.0-0.2); Basophils % (Auto) 0 % (0-2.5); Eosinophils # (Auto) 0.0 Thou/mm3 (0.0-0.5); Eosinophils % (Auto) 0 % (0-10); Hematocrit 51.8 % (41.0-53.0); Hemoglobin 17.4 g/dL (13.5-16.0); Immature Granulocytes Auto 0.04 Thou/mm3 (0.00-0.00); Lymphocytes # (Auto) 1.3 Thou/mm3 (1.0-4.8); Lymphocytes % (Auto) 11 % (10-50); Mean Corpuscular HGB Conc 33.6 g/dl (31.0-37.0); Mean Corpuscular Hemoglobin 31.0 pg (25.0-35.0); Mean Corpuscular Volume 92 fL (80-100); Monocytes # (Auto) 0.5 Thou/mm3 (0.0-0.8); Monocytes % (Auto) 4 % (0-12); Neutrophils # (Auto) 9.7 Thou/mm3 (1.8-7.7); Neutrophils % (Auto) 84 % (37-80); Nucleated Red Blood Cell # 0.00 Thou/mm3 (0.00-0.00); Nucleated Red Blood Cell % 0 /100 WBC (0); Platelet Count 175 Thou/mm3 (140-440); RDW Standard Deviation 51.7 fL (35.1-43.9); Red Blood Count 5.62 Miln/mm3 (4.50-5.90); White Blood Count 11.5 Thou/mm3 (3.8-10.6)
[2025-08-09 06:20] LABS: Partial Thromboplastin Time 31.9 Seconds (22.0-36.0)
[2025-08-09 06:38] LABS: Alanine Aminotransferase 181 U/L (10-49); Albumin, Serum 4.6 gm/dL (3.4-4.8); Albumin/Globulin Ratio 1.6 (1.2-2.2); Alkaline Phosphatase 62 U/L (46-116); Anion Gap 12 (7-16); Aspartate Amino Transferase 94 U/L (0-34); BUN/Creatinine Ratio 9 Ratio (12-20); Bilirubin,Total 0.6 mg/dL (0.3-1.2); Blood Urea Nitrogen 11 mg/dL (9-23); Calcium 9.7 mg/dL (8.3-10.6); Calcium (Corrected) 9.7 mg/dL (8.5-10.1); Carbon Dioxide 21.7 mMol/L (20.0-31.0); Cardiac Risk Estimate 5.6 RATIO (4.0-6.7); Chloride 106 mMol/L (98-107); Cholesterol 184 mg/dL (132-200); Creatinine (Component) 1.2 mg/dL (0.6-1.3); Estimated Creatinine Clearance 89.2 mL/min (>60); Globulin 2.8 gm/dL (2.3-3.5); Glucose 151 mg/dL (74-106); HDL Cholesterol 33 mg/dL (40-60); LDL Cholesterol,Calculated 136 mg/dL (0-130); Magnesium 1.8 mg/dL (1.6-2.6); Osmolality,Calculated 281 (275-295); Phosphorous 2.5 mg/dL (2.4-5.1); Potassium 4.6 mMol/L (3.4-5.1); Sodium 140 mMol/L (136-145); Thyroid Stimulating Hormone 1.03 uIU/mL (0.55-4.78); Total Protein 7.4 gm/dL (5.7-8.2); Triglycerides 73 mg/dL (30-150); eGFR > 60 See Note
[2025-08-09] MEDS: HEPARIN SOD INJ 5000 UNIT/ML VIAL 4000 UNIT IV (06:43)
[2025-08-09 07:16] LABS: Glucose Estimated Average 126 mg/dL (80-131); Hemoglobin A1C 6.0 % Hgb (4.8-6.0)
--- NOTE | 2025-08-09 08:14 | PD.IMPROG ---
Documentation for date of: 08/09/25 Subjective Subjective Interval history: no furthre chest pain troponin peaked at 2.5 Exam Vital Signs Temp Pulse Resp BP Pulse Ox O2 Del Method 97.0 F 87 18 133/94 H 95 Room Air 08/09/25 08:00 08/09/25 08:00 08/09/25 08:00 08/09/25 08:00 08/09/25 08:00 08/09/25 08:00 Routine HEENT Exam Head: Present normocephalic and atraumatic Eye: Present EOMI and PERRL ENT: Present mucous membranes moist Routine Neck Exam Neck: Present supple and trachea midline Routine Respiratory Exam Respiratory: Present chest non-tender, lungs clear, normal breath sounds and no resp distress Routine Cardiovascular Exam Cardiovascular: Present RRR Routine Abdominal Exam Abdominal: Present soft and normoactive bowel sounds Routine Extremities Exam Extremities: Present full ROM Routine Skin Exam Skin: Present intact, dry and warm Routine Neurological Exam Neurological: Present alert, oriented X3 and CN II-XII intact Routine Psychiatric Exam Psychiatric: Present normal affect and normal thought process Objective Labs 08/09/25 05:03 08/09/25 05:03 Labs: Laboratory Results - last 24 hr 08/08/25 08/08/25 08/08/25 10:02 12:41 15:39 WBC 6.8 RBC 5.92 H Hgb 18.1 H* Hct 54.5 H MCV 92 MCH 30.6 MCHC 33.2 RDW Std Deviation 51.5 H Plt Count 188 Neut % (Auto) 48 Lymph % (Auto) 38 [place] % (Auto) 11 Eos % (Auto) 1 Baso % (Auto) 1 Neut # (Auto) 3.3 Lymph # (Auto) 2.6 [place] # (Auto) 0.8 Eos # (Auto) 0.1 Baso # (Auto) 0.1 Immature Gran # (Auto) 0.05 H Absolute Nucleated RBC 0.00 Immature Gran % 1 H Nucleated RBC % 0 PT 10.8 INR 1.0 APTT 25.8 Sodium 142 Potassium 4.9 Chloride 106 Carbon Dioxide 24.6 Anion Gap 11 BUN 10 Creatinine 1.2 Estim Creat Clear Calc 87.7 eGFR > 60 BUN/Creatinine Ratio 8 L Glucose [address] Glu mg/dL Hemoglobin A1c Calculated Osmolality 283 Calcium 10.0 Corrected Calcium 10.0 Phosphorus 3.3 Magnesium 2.0 Total Bilirubin 0.7 AST 86 H ALT 218 H Alkaline Phosphatase 68 Troponin I 0.380 H* 0.843 H* D 2.166 H* D B-Natriuretic Peptide < 20 Total Protein 8.0 Albumin 5.1 H Globulin 2.9 Albumin/Globulin Ratio 1.8 Triglycerides Cholesterol LDL Cholesterol, Calc HDL Cholesterol Cholesterol/HDL Ratio Lipase 31 TSH 08/08/25 08/08/25 08/09/25 19:35 23:01 02:54 WBC RBC Hgb Hct MCV MCH MCHC RDW Std Deviation Plt Count Neut % (Auto) Lymph % (Auto) [place] % (Auto) Eos % (Auto) Baso % (Auto) Neut # (Auto) Lymph # (Auto) [place] # (Auto) Eos # (Auto) Baso # (Auto) Immature Gran # (Auto) Absolute Nucleated RBC Immature Gran % Nucleated RBC % PT INR APTT 27.1 Sodium Potassium Chloride Carbon Dioxide Anion Gap BUN Creatinine Estim Creat Clear Calc eGFR BUN/Creatinine Ratio Glucose Estimated Ave Glu mg/dL Hemoglobin A1c Calculated Osmolality Calcium Corrected Calcium Phosphorus Magnesium Total Bilirubin AST ALT Alkaline Phosphatase Troponin I 1.929 H* D 1.917 H* 2.523 H* D B-Natriuretic Peptide Total Protein Albumin Globulin Albumin/Globulin Ratio Triglycerides Cholesterol LDL Cholesterol, Calc HDL Cholesterol Cholesterol/HDL Ratio Lipase TSH 08/09/25 05:03 WBC 11.5 H D RBC 5.62 Hgb 17.4 H Hct 51.8 MCV 92 MCH 31.0 MCHC 33.6 RDW Std Deviation 51.7 H Plt Count 175 Neut % (Auto) 84 H Lymph % (Auto) 11 [place] % (Auto) 4 Eos % (Auto) 0 Baso % (Auto) 0 Neut # (Auto) 9.7 H Lymph # (Auto) 1.3 [place] # (Auto) 0.5 Eos # (Auto) 0.0 Baso # (Auto) 0.0 Immature Gran # (Auto) 0.04 H Absolute Nucleated RBC 0.00 Immature Gran % 0 Nucleated RBC % 0 PT INR APTT 31.9 Sodium 140 Potassium 4.6 Chloride 106 Carbon Dioxide 21.7 Anion Gap 12 BUN 11 Creatinine 1.2 Estim Creat Clear Calc 89.2 eGFR > 60 BUN/Creatinine Ratio 9 L Glucose [address] Glu mg/dL 126 Hemoglobin A1c 6.0 Calculated Osmolality 281 Calcium 9.7 Corrected Calcium 9.7 Phosphorus 2.5 Magnesium 1.8 Total Bilirubin 0.6 AST 94 H ALT 181 H Alkaline Phosphatase 62 Troponin I B-Natriuretic Peptide Total Protein 7.4 Albumin 4.6 D Globulin 2.8 Albumin/Globulin Ratio 1.6 Triglycerides 73 Cholesterol 184 LDL Cholesterol, Calc 136 H HDL Cholesterol 33 L Cholesterol/HDL Ratio 5.6 Lipase TSH 1.03 Assessment & Plan A&P Narrative peaked at 2.5 heart cath tomorrow Time Spent With Patient Time: Total time spent is greater than 50% in coordination of care (as documented) at patient's floor/unit and/or counseling patient:
[2025-08-09] MEDS: METOPROLOL TARTRATE 25 MG TABLET 50 MG PO ×2 (09:21→21:03)
[2025-08-09] MEDS: LOSARTAN POTASSIUM 25 MG TABLET 50 MG PO (09:21)
[2025-08-09] MEDS: ASPIRIN EC 81 MG TABEC PO (09:21)
--- NOTE | 2025-08-09 09:21 | PC.SS ---
Follow up note: Pending cardio cath.
[2025-08-09] MEDS: Heparin/D5w 25K 250 ML Ivpb 25,000 UNIT/250 ML BAG 20.888 UNIT IV (09:29)
--- NOTE | 2025-08-09 09:59 | ESPR_ITS ---
<Statement entered by Jessica Chicas MD - 08/10/25 07:27> Patient was seen and examined by me personally. I have directly supervised and reviewed documentation by the team resident and agree with its findings with any exceptions or additional findings as below. Plan of care was discussed with the attending, Dr. Hall. No overnight events, however the patient's troponin does continue to uptrend. Throughout today, troponin trended from 2.523 up to 5.473. Patient continues to deny any chest pain, shortness of breath, lightheadedness, or any other symptoms. Will continue heparin drip, cath is schedule for tomorrow per cardiology. Jessica Chicas, PGY-3 Documentation for date of: 08/09/25 Subjective Subjective Interval history: Patient seen and examined at bedside; no acute events overnight. Latest troponin 3.879 and has not peaked; will get cath tomorrow per Dr. Chung. NPO after midnight. Exam Vital Signs Temp Pulse Resp BP Pulse Ox O2 Del Method 97.0 F 87 18 133/94 H 95 Room Air 08/09/25 08:00 08/09/25 09:21 08/09/25 08:00 08/09/25 09:21 08/09/25 08:00 08/09/25 08:00 Narrative Exam General: A/O x3, no acute distress, well-nourished, well-developed, obese Eyes: PERRL, EOMI. Anicteric, vision grossly intact. Ears: No ear pain, no ear discharge, Hearing grossly intact. Nose: No nasal discharge. Mouth/Throat: Moist mucous membranes, no redness, no lesions. Neck: Neck supple, non-tender, no cervical lymphadenopathy. Lungs: Clear JOSE to auscultation and percussion, No accessory muscle use. Cardio: Normal S1/S2, regular rhythm, no murmurs, no JVD or carotid bruits, no chest pain on palpation Abdomen: Soft, non-tender, no palpable masses, peristalsis present, no guarding or rebound. Extremities: Symmetrical, no significant deformities, no peripheral edema , non-tender, peripheral pulses present. Skin: No rashes, no lesions, warm to touch. Neuro: No focal neurological deficits. Psych: Cooperative, appropriate mood and effect. Objective Labs 08/09/25 05:03 08/09/25 05:03 Labs: Laboratory Results - last 24 hr 08/08/25 08/08/25 08/08/25 10:02 12:41 15:39 WBC 6.8 RBC 5.92 H Hgb 18.1 H* Hct 54.5 H MCV 92 MCH 30.6 MCHC 33.2 RDW Std Deviation 51.5 H Plt Count 188 Neut % (Auto) 48 Lymph % (Auto) 38 [place] % (Auto) 11 Eos % (Auto) 1 Baso % (Auto) 1 Neut # (Auto) 3.3 Lymph # (Auto) 2.6 [place] # (Auto) 0.8 Eos # (Auto) 0.1 Baso # (Auto) 0.1 Immature Gran # (Auto) 0.05 H Absolute Nucleated RBC 0.00 Immature Gran % 1 H Nucleated RBC % 0 PT 10.8 INR 1.0 APTT 25.8 Sodium 142 Potassium 4.9 Chloride 106 Carbon Dioxide 24.6 Anion Gap 11 BUN 10 Creatinine 1.2 Estim Creat Clear Calc 87.7 eGFR > 60 BUN/Creatinine Ratio 8 L Glucose [address] Glu mg/dL Hemoglobin A1c Calculated Osmolality 283 Calcium 10.0 Corrected Calcium 10.0 Phosphorus 3.3 Magnesium 2.0 Total Bilirubin 0.7 AST 86 H ALT 218 H Alkaline Phosphatase 68 Troponin I 0.380 H* 0.843 H* D 2.166 H* D B-Natriuretic Peptide < 20 Total Protein 8.0 Albumin 5.1 H Globulin 2.9 Albumin/Globulin Ratio 1.8 Triglycerides Cholesterol LDL Cholesterol, Calc HDL Cholesterol Cholesterol/HDL Ratio Lipase 31 TSH 08/08/25 08/08/25 08/09/25 19:35 23:01 02:54 WBC RBC Hgb Hct MCV MCH MCHC RDW Std Deviation Plt Count Neut % (Auto) Lymph % (Auto) [place] % (Auto) Eos % (Auto) Baso % (Auto) Neut # (Auto) Lymph # (Auto) [place] # (Auto) Eos # (Auto) Baso # (Auto) Immature Gran # (Auto) Absolute Nucleated RBC Immature Gran % Nucleated RBC % PT INR APTT 27.1 Sodium Potassium Chloride Carbon Dioxide Anion Gap BUN Creatinine Estim Creat Clear Calc eGFR BUN/Creatinine Ratio Glucose Estimated Ave Glu mg/dL Hemoglobin A1c Calculated Osmolality Calcium Corrected Calcium Phosphorus Magnesium Total Bilirubin AST ALT Alkaline Phosphatase Troponin I 1.929 H* D 1.917 H* 2.523 H* D B-Natriuretic Peptide Total Protein Albumin Globulin Albumin/Globulin Ratio Triglycerides Cholesterol LDL Cholesterol, Calc HDL Cholesterol Cholesterol/HDL Ratio Lipase TSH 08/09/25 05:03 WBC 11.5 H D RBC 5.62 Hgb 17.4 H Hct 51.8 MCV 92 MCH 31.0 MCHC 33.6 RDW Std Deviation 51.7 H Plt Count 175 Neut % (Auto) 84 H Lymph % (Auto) 11 [place] % (Auto) 4 Eos % (Auto) 0 Baso % (Auto) 0 Neut # (Auto) 9.7 H Lymph # (Auto) 1.3 [place] # (Auto) 0.5 Eos # (Auto) 0.0 Baso # (Auto) 0.0 Immature Gran # (Auto) 0.04 H Absolute Nucleated RBC 0.00 Immature Gran % 0 Nucleated RBC % 0 PT INR APTT 31.9 Sodium 140 Potassium 4.6 Chloride 106 Carbon Dioxide 21.7 Anion Gap 12 BUN 11 Creatinine 1.2 Estim Creat Clear Calc 89.2 eGFR > 60 BUN/Creatinine Ratio 9 L Glucose [address] Glu mg/dL 126 Hemoglobin A1c 6.0 Calculated Osmolality 281 Calcium 9.7 Corrected Calcium 9.7 Phosphorus 2.5 Magnesium 1.8 Total Bilirubin 0.6 AST 94 H ALT 181 H Alkaline Phosphatase 62 Troponin I B-Natriuretic Peptide Total Protein 7.4 Albumin 4.6 D Globulin 2.8 Albumin/Globulin Ratio 1.6 Triglycerides 73 Cholesterol 184 LDL Cholesterol, Calc 136 H HDL Cholesterol 33 L Cholesterol/HDL Ratio 5.6 Lipase TSH 1.03 Quality Measures Quality Measures none Advance care planning discussed with:: other Assessment & Plan Assessment Current Active Medications: Generic Name Dose Route Start Last Admin Trade Name Freq PRN Reason Stop Dose Admin Acetaminophen 650 mg 08/08/25 15:14 Acetaminophen 325 Mg Tablet PO 09/07/25 15:13 Q6H PRN Fever >100.4 Acetaminophen 650 mg 08/08/25 15:14 Acetaminophen 325 Mg Tablet PO 09/07/25 15:13 Q6H PRN PAIN SCALE 1-3 (mild Hydrocodone Bitart/Acetaminophen 1 tab 08/08/25 15:14 Hydrocodone/Apap 5/325 Tablet PO 08/13/25 15:13 Q4HR PRN PAIN SCALE 4-6 (Moderate Allopurinol 300 mg 08/08/25 15:45 08/09/25 09:22 Allopurinol 100 Mg Tablet PO 09/07/25 15:44 300 mg QDAY TAWANNA Administration Aspirin 81 mg 08/09/25 09:00 08/09/25 09:21 Aspirin Ec 81 Mg Tabec PO 09/08/25 08:59 81 mg QDAY TAWANNA Administration Rosuvastatin 5 Mg 0 ea 08/08/25 18:45 08/08/25 19:34 Tablet PO 09/07/25 18:44 4 tablet HS TAWANNA Administration Heparin Sodium/Dextrose 25,000 unit in 250 mls @ 10.002 mls/hr 08/08/25 14:30 08/09/25 09:29 Heparin In D5w Ivpb IV 08/22/25 14:29 15.35 units/kg/hr .Q24H TAWANNA 20.888 mls/hr Protocol Administration 7.35 UNITS/KG/HR Labetalol HCl 10 mg 08/08/25 15:50 Labetalol Inj 5 Mg/Ml Vial 4 Ml IVP 09/07/25 15:49 Q4H PRN SBP>180 or DBP>110 Levothyroxine Sodium 88 mcg 08/09/25 06:00 08/09/25 05:31 Levothyroxine Sodium 88 Mcg Tablet PO 09/08/25 05:59 88 mcg ACBR TAWANNA Administration Losartan Potassium 50 mg 08/08/25 15:45 08/09/25 09:21 Losartan Potassium 25 Mg Tablet PO 09/07/25 15:44 50 mg QDAY TAWANNA Administration Metoprolol Tartrate 50 mg 08/08/25 15:30 08/09/25 09:21 Metoprolol Tartrate 25 Mg Tablet PO 09/07/25 15:29 50 mg BID TAWANNA Administration Plan Patient is a 65 yo M with PMH of HTN, HLD, DM, A-fib, A-flutter, PE, hypothyroidism, gout, low testosterone, BRYAN presenting to the ED on 08/08 with new-onset chest pain. Patient admitted for NSTEMI vs PE workup. #ACS #CAD #Hx of A-fib #Hx of A-flutter #Hx of PE Patient had cramping pain, not reproducible on palpation radiating to L arm since this AM. EKG #1 0971- normal sinus rhythm, rate 80, left axis deviation, no ectopy, Q wave in leads 2, 3, and AVF, questionable elevation in the precordial leads but consulted with Dr. Chung who states it does not look like a STEMI. EKG #2- 1300, normal sinus rhythm, rate 78, left axis deviation, no ectopy, no signs of acute ischemia, Q wave in leads 2, 3, and AVF Troponin- 0.38 on admission, latest 3.879 Patient has had a-fib and a-flutter with ablations on Eliquis CTA negative Plan: Cardiology consulted, likely NSTEMI- will do cath in AM On heparin drip Aspirin 81 qday Atorvastatin 40 daily Metoprolol tartrate 50 BID Losartan 50 Trend troponin q4h until peaked Echo ordered #Hx DM Patient takes metformin at home BG 151 this morning Plan: ISS step 1 #Polycythemia #Low testosterone on treatment #BRYAN Plan: Continue with outpatient phlebotomies CPAP at night #Hx HTN Plan: As above, plus labetalol 10 q4h prn if SBP > 180 or DBP > 110 #Hx gout #Hx hypothyroidism Resume home allopurinol and levothyroxine Disposition: Tele DVT prophylaxis: Heparin protocol GI prophylaxis: Diet: Cardiac, NPO after midnight Lines: PIV CODE STATUS: Full This case was discussed with my attending physician, Dr. Hall, and senior resident, Dr. Chicas. Aaron Russo, PGY1 Attending Provider Attestation/Addendum I have discussed and was present for the essential components of the history, physical examination, diagnosis, and treatment plan with the resident. I agree with the patient's care as documented by the resident and amended herein by me. Poli Hall DO. Although this document has been carefully reviewed, there may still be some phonetic and other typographical errors. These errors are purely grammatical due to imperfections in the software program and should not be construed in any way to compromise the substance of the patient's medical care during this visit. - Pending SNF placement, may go today if suitable facility is found
[2025-08-09 10:41] LABS: Troponin I 3.879 ng/mL (0.0-0.045)
[2025-08-09 11:15] LABS: Partial Thromboplastin Time 47.0 Seconds (22.0-36.0)
[2025-08-09] MEDS: HEPARIN SOD INJ 5000 UNIT/ML VIAL 2000 UNIT IVP (12:14)
[2025-08-09 13:37] LABS: Troponin I 5.107 ng/mL (0.0-0.045)
[2025-08-09] MEDS: CLOPIDOGREL BISULFATE 75 MG TABLET PO (15:04)
[2025-08-09 16:53] LABS: Troponin I 5.473 ng/mL (0.0-0.045)
[2025-08-09 18:52] LABS: Partial Thromboplastin Time 47.2 Seconds (22.0-36.0)
[2025-08-09] MEDS: HEPARIN SOD INJ 5000 UNIT/ML VIAL 2000 UNIT IV (19:46)
[2025-08-09 20:42] LABS: Troponin I 6.921 ng/mL (0.0-0.045)
[2025-08-09] MEDS: Heparin/D5w 25K 250 ML Ivpb 25,000 UNIT/250 ML BAG 26.331 UNIT IV (21:03)
[2025-08-09] MEDS: ATORVASTATIN CALCIUM 10 MG TABLET 40 MG PO (22:07)
[2025-08-10] VITALS (20 sets, daily range): BP systolic 114–170; BP diastolic 69–106; PULSE 69–103; RESP 12–94; TEMP 35.9–36.5; O2SAT 91–97; BMI 40.8
[2025-08-10 00:05] LABS: Troponin I 7.942 ng/mL (0.0-0.045)
[2025-08-10 02:45] LABS: INR 1.0 (0.9-1.3); Partial Thromboplastin Time 62.9 Seconds (22.0-36.0); Prothrombin Time 11.0 Seconds (9.0-12.2)
[2025-08-10] MEDS: LEVOTHYROXINE SODIUM 88 MCG TABLET PO (05:55)
[2025-08-10] MEDS: Heparin/D5w 25K 250 ML Ivpb 25,000 UNIT/250 ML BAG 26.331 UNIT IV ×2 (05:55→23:29)
[2025-08-10 06:19] LABS: Basophils # (Auto) 0.1 Thou/mm3 (0.0-0.2); Basophils % (Auto) 1 % (0-2.5); Eosinophils # (Auto) 0.1 Thou/mm3 (0.0-0.5); Eosinophils % (Auto) 1 % (0-10); Hematocrit 50.2 % (41.0-53.0); Hemoglobin 16.5 g/dL (13.5-16.0); Immature Granulocytes Auto 0.06 Thou/mm3 (0.00-0.00); Lymphocytes # (Auto) 3.4 Thou/mm3 (1.0-4.8); Lymphocytes % (Auto) 27 % (10-50); Mean Corpuscular HGB Conc 32.9 g/dl (31.0-37.0); Mean Corpuscular Hemoglobin 30.5 pg (25.0-35.0); Mean Corpuscular Volume 93 fL (80-100); Monocytes # (Auto) 1.3 Thou/mm3 (0.0-0.8); Monocytes % (Auto) 10 % (0-12); Neutrophils # (Auto) 7.9 Thou/mm3 (1.8-7.7); Neutrophils % (Auto) 62 % (37-80); Nucleated Red Blood Cell # 0.00 Thou/mm3 (0.00-0.00); Nucleated Red Blood Cell % 0 /100 WBC (0); Platelet Count 183 Thou/mm3 (140-440); RDW Standard Deviation 52.3 fL (35.1-43.9); Red Blood Count 5.41 Miln/mm3 (4.50-5.90); White Blood Count 12.7 Thou/mm3 (3.8-10.6)
[2025-08-10 06:46] LABS: Alanine Aminotransferase 133 U/L (10-49); Albumin, Serum 4.4 gm/dL (3.4-4.8); Albumin/Globulin Ratio 1.7 (1.2-2.2); Alkaline Phosphatase 57 U/L (46-116); Anion Gap 9 (7-16); Aspartate Amino Transferase 97 U/L (0-34); BUN/Creatinine Ratio 17 Ratio (12-20); Bilirubin,Total 0.6 mg/dL (0.3-1.2); Blood Urea Nitrogen 22 mg/dL (9-23); Calcium 9.2 mg/dL (8.3-10.6); Calcium (Corrected) 9.2 mg/dL (8.5-10.1); Carbon Dioxide 24.4 mMol/L (20.0-31.0); Chloride 108 mMol/L (98-107); Creatinine (Component) 1.3 mg/dL (0.6-1.3); Estimated Creatinine Clearance 82.4 mL/min (>60); Globulin 2.6 gm/dL (2.3-3.5); Glucose 119 mg/dL (74-106); Magnesium 1.9 mg/dL (1.6-2.6); Osmolality,Calculated 285 (275-295); Phosphorous 4.3 mg/dL (2.4-5.1); Potassium 4.4 mMol/L (3.4-5.1); Sodium 141 mMol/L (136-145); Total Protein 7.0 gm/dL (5.7-8.2); eGFR > 60 See Note
[2025-08-10] MEDS: CLOPIDOGREL BISULFATE 75 MG TABLET PO (08:26)
[2025-08-10] MEDS: ASPIRIN EC 81 MG TABEC PO (08:26)
--- NOTE | 2025-08-10 08:58 | ESPR_ITS ---
Documentation for date of: 08/10/25 Subjective Subjective Interval history: Patient denies any chest pain Non-ST elevation RI Heart catheter today Exam Vital Signs Temp Pulse Resp BP Pulse Ox O2 Del Method 97.6 F 82 17 136/94 H 95 Room Air 08/10/25 07:53 08/10/25 08:29 08/10/25 08:29 08/10/25 08:29 08/10/25 08:29 08/10/25 08:29 Routine HEENT Exam Head: Present normocephalic and atraumatic Eye: Present EOMI and PERRL ENT: Present mucous membranes moist Routine Neck Exam Neck: Present supple and trachea midline Routine Respiratory Exam Respiratory: Present chest non-tender, lungs clear, normal breath sounds and no resp distress Routine Cardiovascular Exam Cardiovascular: Present RRR Routine Abdominal Exam Abdominal: Present soft and normoactive bowel sounds Routine Extremities Exam Extremities: Present full ROM Routine Skin Exam Skin: Present intact, dry and warm Routine Neurological Exam Neurological: Present alert, oriented X3 and CN II-XII intact Routine Psychiatric Exam Psychiatric: Present normal affect and normal thought process Objective Labs 08/10/25 05:50 08/10/25 05:50 Labs: Laboratory Results - last 24 hr 08/09/25 08/09/25 08/09/25 09:17 10:41 12:35 WBC RBC Hgb Hct MCV MCH MCHC RDW Std Deviation Plt Count Neut % (Auto) Lymph % (Auto) [place] % (Auto) Eos % (Auto) Baso % (Auto) Neut # (Auto) Lymph # (Auto) [place] # (Auto) Eos # (Auto) Baso # (Auto) Immature Gran # (Auto) Absolute Nucleated RBC Immature Gran % Nucleated RBC % PT INR APTT 47.0 H D Sodium Potassium Chloride Carbon Dioxide Anion Gap BUN Creatinine Estim Creat Clear Calc eGFR BUN/Creatinine Ratio Glucose Calculated Osmolality Calcium Corrected Calcium Phosphorus Magnesium Total Bilirubin AST ALT Alkaline Phosphatase Troponin I 3.879 H* D 5.107 H* D Total Protein Albumin Globulin Albumin/Globulin Ratio 08/09/25 08/09/25 08/09/25 16:13 18:23 19:51 WBC RBC Hgb Hct MCV MCH MCHC RDW Std Deviation Plt Count Neut % (Auto) Lymph % (Auto) [place] % (Auto) Eos % (Auto) Baso % (Auto) Neut # (Auto) Lymph # (Auto) [place] # (Auto) Eos # (Auto) Baso # (Auto) Immature Gran # (Auto) Absolute Nucleated RBC Immature Gran % Nucleated RBC % PT INR APTT 47.2 H Sodium Potassium Chloride Carbon Dioxide Anion Gap BUN Creatinine Estim Creat Clear Calc eGFR BUN/Creatinine Ratio Glucose Calculated Osmolality Calcium Corrected Calcium Phosphorus Magnesium Total Bilirubin AST ALT Alkaline Phosphatase Troponin I 5.473 H* D 6.921 H* D Total Protein Albumin Globulin Albumin/Globulin Ratio 08/09/25 08/10/25 08/10/25 23:36 01:56 05:50 WBC 12.7 H RBC 5.41 Hgb 16.5 H Hct 50.2 MCV 93 MCH 30.5 MCHC 32.9 RDW Std Deviation 52.3 H Plt Count 183 Neut % (Auto) 62 Lymph % (Auto) 27 [place] % (Auto) 10 Eos % (Auto) 1 Baso % (Auto) 1 Neut # (Auto) 7.9 H Lymph # (Auto) 3.4 [place] # (Auto) 1.3 H Eos # (Auto) 0.1 Baso # (Auto) 0.1 Immature Gran # (Auto) 0.06 H Absolute Nucleated RBC 0.00 Immature Gran % 1 H Nucleated RBC % 0 PT 11.0 INR 1.0 APTT 62.9 H D Sodium 141 Potassium 4.4 Chloride 108 H Carbon Dioxide 24.4 Anion Gap 9 BUN 22 Creatinine 1.3 Estim Creat Clear Calc 82.4 eGFR > 60 BUN/Creatinine Ratio 17 Glucose 119 H Calculated Osmolality 285 Calcium 9.2 Corrected Calcium 9.2 Phosphorus 4.3 Magnesium 1.9 Total Bilirubin 0.6 AST 97 H ALT 133 H Alkaline Phosphatase 57 Troponin I 7.942 H* D 10.270 H* D Total Protein 7.0 Albumin 4.4 Globulin 2.6 Albumin/Globulin Ratio 1.7 Assessment & Plan A&P Narrative peaked 5 Heart cath today w Time Spent With Patient Time: Total time spent is greater than 50% in coordination of care (as documented) at patient's floor/unit and/or counseling patient:
--- NOTE | 2025-08-10 09:13 | PD.RESPRO ---
Documentation for date of: 08/10/25 Exam Vital Signs Temp Pulse Resp BP Pulse Ox O2 Del Method 97.6 F 82 17 136/94 H 95 Room Air 08/10/25 07:53 08/10/25 08:29 08/10/25 08:29 08/10/25 08:29 08/10/25 08:29 08/10/25 08:29 Objective Labs 08/10/25 05:50 08/10/25 05:50 Labs: Laboratory Results - last 24 hr 08/09/25 08/09/25 08/09/25 09:17 10:41 12:35 WBC RBC Hgb Hct MCV MCH MCHC RDW Std Deviation Plt Count Neut % (Auto) Lymph % (Auto) [place] % (Auto) Eos % (Auto) Baso % (Auto) Neut # (Auto) Lymph # (Auto) [place] # (Auto) Eos # (Auto) Baso # (Auto) Immature Gran # (Auto) Absolute Nucleated RBC Immature Gran % Nucleated RBC % PT INR APTT 47.0 H D Sodium Potassium Chloride Carbon Dioxide Anion Gap BUN Creatinine Estim Creat Clear Calc eGFR BUN/Creatinine Ratio Glucose Calculated Osmolality Calcium Corrected Calcium Phosphorus Magnesium Total Bilirubin AST ALT Alkaline Phosphatase Troponin I 3.879 H* D 5.107 H* D Total Protein Albumin Globulin Albumin/Globulin Ratio 08/09/25 08/09/25 08/09/25 16:13 18:23 19:51 WBC RBC Hgb Hct MCV MCH MCHC RDW Std Deviation Plt Count Neut % (Auto) Lymph % (Auto) [place] % (Auto) Eos % (Auto) Baso % (Auto) Neut # (Auto) Lymph # (Auto) [place] # (Auto) Eos # (Auto) Baso # (Auto) Immature Gran # (Auto) Absolute Nucleated RBC Immature Gran % Nucleated RBC % PT INR APTT 47.2 H Sodium Potassium Chloride Carbon Dioxide Anion Gap BUN Creatinine Estim Creat Clear Calc eGFR BUN/Creatinine Ratio Glucose Calculated Osmolality Calcium Corrected Calcium Phosphorus Magnesium Total Bilirubin AST ALT Alkaline Phosphatase Troponin I 5.473 H* D 6.921 H* D Total Protein Albumin Globulin Albumin/Globulin Ratio 08/09/25 08/10/25 08/10/25 23:36 01:56 05:50 WBC 12.7 H RBC 5.41 Hgb 16.5 H Hct 50.2 MCV 93 MCH 30.5 MCHC 32.9 RDW Std Deviation 52.3 H Plt Count 183 Neut % (Auto) 62 Lymph % (Auto) 27 [place] % (Auto) 10 Eos % (Auto) 1 Baso % (Auto) 1 Neut # (Auto) 7.9 H Lymph # (Auto) 3.4 [place] # (Auto) 1.3 H Eos # (Auto) 0.1 Baso # (Auto) 0.1 Immature Gran # (Auto) 0.06 H Absolute Nucleated RBC 0.00 Immature Gran % 1 H Nucleated RBC % 0 PT 11.0 INR 1.0 APTT 62.9 H D Sodium 141 Potassium 4.4 Chloride 108 H Carbon Dioxide 24.4 Anion Gap 9 BUN 22 Creatinine 1.3 Estim Creat Clear Calc 82.4 eGFR > 60 BUN/Creatinine Ratio 17 Glucose 119 H Calculated Osmolality 285 Calcium 9.2 Corrected Calcium 9.2 Phosphorus 4.3 Magnesium 1.9 Total Bilirubin 0.6 AST 97 H ALT 133 H Alkaline Phosphatase 57 Troponin I 7.942 H* D 10.270 H* D Total Protein 7.0 Albumin 4.4 Globulin 2.6 Albumin/Globulin Ratio 1.7 Quality Measures Quality Measures none Assessment & Plan Assessment Current Active Medications: Generic Name Dose Route Start Last Admin Trade Name Freq PRN Reason Stop Dose Admin Acetaminophen 650 mg 08/08/25 15:14 Acetaminophen 325 Mg Tablet PO 09/07/25 15:13 Q6H PRN Fever >100.4 Acetaminophen 650 mg 08/08/25 15:14 Acetaminophen 325 Mg Tablet PO 09/07/25 15:13 Q6H PRN PAIN SCALE 1-3 (mild Hydrocodone Bitart/Acetaminophen 1 tab 08/08/25 15:14 Hydrocodone/Apap 5/325 Tablet PO 08/13/25 15:13 Q4HR PRN PAIN SCALE 4-6 (Moderate Allopurinol 300 mg 08/08/25 15:45 08/09/25 09:22 Allopurinol 100 Mg Tablet PO 09/07/25 15:44 300 mg QDAY TAWANNA Administration Aspirin 81 mg 08/09/25 09:00 08/10/25 08:26 Aspirin Ec 81 Mg Tabec PO 09/08/25 08:59 81 mg QDAY TAWANNA Administration Atorvastatin Calcium 40 mg 08/10/25 21:00 Atorvastatin Calcium 20 Mg Tablet PO 09/09/25 20:59 HS TAWANNA Clopidogrel Bisulfate 75 mg 08/09/25 14:00 08/10/25 08:26 Clopidogrel Bisulfate 75 Mg Tablet PO 09/08/25 13:59 75 mg QDAY TAWANNA Administration Heparin Sodium/Dextrose 25,000 unit in 250 mls @ 10.002 mls/hr 08/08/25 14:30 08/10/25 07:43 Heparin In D5w Ivpb IV 08/22/25 14:29 0 units/kg/hr .Q24H TAWANNA 0 mls/hr Protocol Titration 7.35 UNITS/KG/HR Labetalol HCl 10 mg 08/08/25 15:50 Labetalol Inj 5 Mg/Ml Vial 4 Ml IVP 09/07/25 15:49 Q4H PRN SBP>180 or DBP>110 Levothyroxine Sodium 88 mcg 08/09/25 06:00 08/10/25 05:55 Levothyroxine Sodium 88 Mcg Tablet PO 09/08/25 05:59 88 mcg ACBR TAWANNA Administration Losartan Potassium 50 mg 08/08/25 15:45 08/09/25 09:21 Losartan Potassium 25 Mg Tablet PO 09/07/25 15:44 50 mg QDAY TAWANNA Administration Metoprolol Tartrate 50 mg 08/08/25 15:30 08/09/25 21:03 Metoprolol Tartrate 25 Mg Tablet PO 09/07/25 15:29 50 mg BID TAWANNA Administration
--- NOTE | 2025-08-10 09:57 | ESOP_ITS ---
Cardiac Cath Procedure Procedure Narrative Date of the procedure 08/10/2025 Title of the procedure 1.left heart catheterization 2.left coronary angiogram 3.right coronary angiogram 4.left ventriculogram 5.conscious sedation 6.radiographic interpretation supervision 7.ultrasound guidance for right radial access Procedure This was done in the cardiac lab under current electrocardiographic monitoring Intermittent blood pressure monitoring right radial access obtained using modified Seldinger technique and ultrasound guidance 6 [place] sheath was placed TIG 4 catheter was used for selective engagement of the left coronary artery TIG 4 catheter was used for selective images right coronary artery TIG 4 catheter used for left ventriculogram Initially we attempted to right radial approach Due to severe tortuosity of the subclavian brachiocephalic trunks We were unable to get access to the right coronary artery and the left Therefore we had to access the right femoral artery J L4 catheter used for selective in your left coronary artery TIG4 for catheter used for selective injection of the right coronary artery Take for catheter was used as patient was tall and long catheters were not available Hemodynamics Overall left ventricular systolic function appears normal Approximate ejection fraction 50% End-diastolic pressure was 14 mmHg There is no gradient across the aortic valve Coronary anatomy 1.left Main coronary artery appears normal 2.left anterior descending artery has luminal regularities distally 3.left circumflex appears normal 4.obtuse marginal appears normal 5.right coronary appears to be a dominant vessel it appears to be occluded proximally Distal RCA and the PDA fills from [id number] collaterals the occlusion appears to be subacute Conclusion At this point we decided to conclude the procedure There was no long enough guiding catheters available at this time Discussion will be made with the patient for possible medical management versus intervention at a different facility
[2025-08-10] MEDS: LOSARTAN POTASSIUM 25 MG TABLET 50 MG PO (11:05)
[2025-08-10] MEDS: METOPROLOL TARTRATE 25 MG TABLET 50 MG PO ×2 (11:05→20:11)
--- NOTE | 2025-08-10 11:06 | ESDS_ITS ---
<Statement entered by Margarita Harkins DO - 08/10/25 20:12> I, Margarita Harkins DO, attest that I was physically present for the saldana portions of the service and evaluated the patient with the resident and I reviewed and discussed the case with the resident and agree with the resident's findings and plans of care as documented above Planned Discharge Date 08/10/25 DS: Providers Provider Date of admission: 08/08/25 19:03 Primary care physician: Physician No Primary/Family Admitting Provider: Dale Powell MD Attending Provider on Admission: Dale Powell MD Consults: 08/08/25 15:30 Consult to Cardiology Stat Comment: Consulting Provider: Apolinar Chung 08/10/25 11:05 Referral - Sas Developer Analyst Stat Service Needed for Transfer: Interventional Cardiology Addl Comments:: NSTEMI. Our facility does not have long enough catheter for cardiac cath due to patient's height. Will need higher level of care i.e. [place]/ [place] per Dr Chung. He will take the sign out if accepted Attending Provider on DC: Margarita Harkins DO Discharging Provider: Margarita Harkins DO DS: Diagnosis Problem List Completed Was Problem List Reviewed/Reconciled?: Yes Hospital Course Hospital Course Hospital course: Hospital Course: Patient is a 65-year-old gentleman with PMH of HTN, HLD, CAD (cath no stents), T2DM, a-fib and a-flutter, PE-on eliquis, history of Factor V Leiden (FVL), hypothyroidism, gout, low testosterone on testosterone therapy, BRYAN who presented to ED on 08/08/2025 with chief complaint of chest pain that began on the morning, and woke him up from sleep, he reported never having similar episode of chest pain, reported radiating to left arm, and improved with 3 aspirin before coming to ED. Pain is not positional or reproducible, and no orthopnea, PND, nausea, vomiting, diaphoresis, fever. ER Course, Troponin was 0.38 that trended up to 0.843 with EKG obtained no ST elevation noted. Cardiology consulted ER, Dr. Chung, who started patient on heparin drip, 325 mg aspirin chewable given in the ED, followed by scheduled aspirin 81 mg once daily, metoprolol titrate, losartan, atorvastatin, plavix 75 mg. CTA chest was negative for pulmonary embolism. Troponin trended, increased to 10.270, no new chest pain reported in hospital. Cardiac cath on 08/10 noted right coronary artery appears occluded unable to cath patient given patient anatomy and guiding catheters not long enough. Per cardiology, Transfer for urgent cardiac catheterization at tertiary care facility was initiated, and patient is stable for transfer to tertiary care facility. Discharge Instructions: Transfer patient to tertiary care facility. Problem List: #NSTEMI, likely type I #ACS #Factor V Leiden #CAD #Hx of A-fib #Hx of A-flutter #Hx of PE #Hx DM #Polycythemia #Low testosterone on treatment #BRYAN #Hx HTN #Hx gout #Hx hypothyroidism This case was discussed with my attending physician, Dr. Harkins, and senior resident, Dr. Hart. Aaron Russo, PGY1 Senior Resident Attestation: I have discussed the case with supervising physician and internet sales director physician involved in the care of patient. I personally saw and examined patient and discussed the assessment and plan with the entire medical team, including attending. I agree with assessment and plan as documented above. - The patient's plan was discussed with attending Dr. Torin Hart MD PGY2 Internal Medicine Status at Discharge Functional status at discharge: independent ambulation Overall status at discharge: patient is not back to baseline Time Spent with Patient Time attestation: Total time spent providing and/or coordinating discharge services: Time spent: Greater than 30 minutes Exam Vital Signs Temp Pulse Resp BP Pulse Ox O2 Del Method 97.7 F 74 16 164/102 H 93 L Room Air 08/10/25 10:06 08/10/25 11:05 08/10/25 10:45 08/10/25 11:05 08/10/25 10:45 08/10/25 10:45 Discharge Plan Plan Patient Disposition: Xfer Other Patient condition on transfer: Stable Prescriptions/Referrals Prescriptions/Med Rec: No Action losartan 100 mg tablet 100 mg PO DAILY allopurinol 300 mg tablet 300 mg PO DAILY levothyroxine 88 mcg tablet 88 mcg PO DAILY rosuvastatin 5 mg tablet 5 mg PO .BEFORE BED TIME diltiazem HCl [DILT-XR] 180 mg capsule,ext.rel 24h degradable 180 mg PO BID Eliquis 5 mg tablet 5 mg PO Q12H metformin 1,000 mg tablet 1,000 mg PO BID thyroid (pork) [ASSOCIATE PRINCIPAL Thyroid] 120 mg tablet 120 mg PO QDAY Referrals: No Primary/Family,Physician [Primary Care Provider] Patient/Caregiver Discharge Instructions Print Language: Norwegian Stand Alone Forms: Celena Award Info., Patient Portal Info Letter Quality Discharge Quality Measures none
--- NOTE | 2025-08-10 11:38 | PC.CC ---
Received call regarding transfer for a facility for longer R coronary guide 125cm. Called [facility] and spoke with Faby in the transfer center. Faxed clinicals to her, she informed staff writer she would call us back if they have the proper procedure.
--- NOTE | 2025-08-10 11:40 | PC.NURSE ---
took over patient at [facility] from corine ng
--- NOTE | 2025-08-10 11:48 | PC.CC ---
Addendum entered by Priscilla Agudelo, RN 08/10/25 15:47: AT 1535 called [facility] regarding the need for a construction or leak gang laborer with R. Coronary guide measuring 125cm. Was told by Severiano, they do have a construction or leak gang laborer but no interventionalist. At 1537 Called [facility] and spoke with Franchesca, she will check into longer coronary guide and will call back. Original Note: REceived call from Faby in the TC at [facility], she was not able to find out if they carried a longer coronary guide but she did decline the pt due to capacity at this time.
[2025-08-10 12:54] LABS: Partial Thromboplastin Time 25.7 Seconds (22.0-36.0)
--- NOTE | 2025-08-10 13:10 | PC.NURSE ---
hand off report given to hilton ng. patient dressings are clean dry and intact. sites are soft, flat, nontender, and no signs of hematoma. dressings and site assessed with hilton ng. hilton rn is made of resuming heparin drip once ptt results.
--- NOTE | 2025-08-10 13:45 | PC.NURSE ---
Called Dr. Chung regarding restarting patient's heparin drip. Will give bolus per protocol but will keep infustion at the same rate it was running before patient went to cardiac hatchery laborer.
[2025-08-10] MEDS: HEPARIN SOD INJ 5000 UNIT/ML VIAL 4000 UNIT IVP (14:02)
--- NOTE | 2025-08-10 16:03 | PC.CC ---
Addendum entered by Priscilla Agudelo RN 08/10/25 19:44: Spoke with Severiano at [facility] transfer center, informed her that packet and images were sent. Transfer initiated at this time. Addendum entered by Priscilla Agudelo RN 08/10/25 19:33: Sent over packet to [facility] for transfer. Addendum entered by Priscilla Agudelo RN 08/10/25 19:27: Update: Franchesca mentioned in previous CM note is from Transfer center for [facility]. Original Note: Received call from Franchesca guzman [address], they checked their clam bed laborer and informed narrative writer the longest rt coronary guide wire is 360 cm, will send over clinicals for transfer.
[2025-08-10] MEDS: ATORVASTATIN CALCIUM 20 MG TABLET 40 MG PO (20:10)
--- NOTE | 2025-08-10 20:19 | PC.NURSE ---
DR. MARTINEZ MADE AWARE OF RIGHT PEDAL PULSE SLIGHTLY WEAKER THAN LEFT PEDAL PULSE. STILL PALPABLE, BILATERAL FEET COLD TO TOUCH. RIGHT GROIN DRESSING CDI. NO SIGNS OF HEMATOMA. NO C/O PAIN, NO SWELLING OR DISCOLORATION TO RIGHT LEG. STATES SHE WILL SEE PT ONCE AVAILABLE. BUT PT IS ASYMPTOMATIC. NO ORDERS GIVEN.
[2025-08-10 21:01] LABS: Partial Thromboplastin Time 50.6 Seconds (22.0-36.0)
[2025-08-11] VITALS (9 sets, daily range): BP systolic 116–140; BP diastolic 71–88; PULSE 68–94; RESP 16–97; TEMP 36.2–36.7; O2SAT 92–97; BMI 40.8
[2025-08-11 03:46] LABS: Basophils # (Auto) 0.1 Thou/mm3 (0.0-0.2); Basophils % (Auto) 1 % (0-2.5); Eosinophils # (Auto) 0.1 Thou/mm3 (0.0-0.5); Eosinophils % (Auto) 1 % (0-10); Hematocrit 50.3 % (41.0-53.0); Hemoglobin 16.5 g/dL (13.5-16.0); Immature Granulocytes Auto 0.06 Thou/mm3 (0.00-0.00); Lymphocytes # (Auto) 3.1 Thou/mm3 (1.0-4.8); Lymphocytes % (Auto) 34 % (10-50); Mean Corpuscular HGB Conc 32.8 g/dl (31.0-37.0); Mean Corpuscular Hemoglobin 30.5 pg (25.0-35.0); Mean Corpuscular Volume 93 fL (80-100); Monocytes # (Auto) 1.2 Thou/mm3 (0.0-0.8); Monocytes % (Auto) 13 % (0-12); Neutrophils # (Auto) 4.6 Thou/mm3 (1.8-7.7); Neutrophils % (Auto) 51 % (37-80); Nucleated Red Blood Cell # 0.00 Thou/mm3 (0.00-0.00); Nucleated Red Blood Cell % 0 /100 WBC (0); Platelet Count 181 Thou/mm3 (140-440); RDW Standard Deviation 52.2 fL (35.1-43.9); Red Blood Count 5.41 Miln/mm3 (4.50-5.90); White Blood Count 9.1 Thou/mm3 (3.8-10.6)
[2025-08-11 04:07] LABS: Alanine Aminotransferase 107 U/L (10-49); Albumin, Serum 4.3 gm/dL (3.4-4.8); Albumin/Globulin Ratio 1.7 (1.2-2.2); Alkaline Phosphatase 58 U/L (46-116); Anion Gap 7 (7-16); Aspartate Amino Transferase 60 U/L (0-34); BUN/Creatinine Ratio 16 Ratio (12-20); Bilirubin,Total 0.4 mg/dL (0.3-1.2); Blood Urea Nitrogen 19 mg/dL (9-23); Calcium 9.2 mg/dL (8.3-10.6); Calcium (Corrected) 9.2 mg/dL (8.5-10.1); Carbon Dioxide 25.1 mMol/L (20.0-31.0); Chloride 109 mMol/L (98-107); Creatinine (Component) 1.2 mg/dL (0.6-1.3); Estimated Creatinine Clearance 89.2 mL/min (>60); Globulin 2.5 gm/dL (2.3-3.5); Glucose 120 mg/dL (74-106); Magnesium 2.0 mg/dL (1.6-2.6); Osmolality,Calculated 284 (275-295); Phosphorous 3.8 mg/dL (2.4-5.1); Potassium 4.3 mMol/L (3.4-5.1); Sodium 141 mMol/L (136-145); Total Protein 6.8 gm/dL (5.7-8.2); eGFR > 60 See Note
[2025-08-11 04:18] LABS: Partial Thromboplastin Time 63.6 Seconds (22.0-36.0)
[2025-08-11] MEDS: LEVOTHYROXINE SODIUM 88 MCG TABLET PO (05:06)
--- NOTE | 2025-08-11 05:47 | PC.NURSE ---
PT WITH C/O OF SHOOTING PAIN TO RIGHT THIGH FROM RIGHT GROIN WITH MOVEMENT ALONG WITH TENDERNESS TO PALPATION TO RIGHT GROIN WHILE ASSESSMENT FOR HEMATOMA. NO HEMATOMA NOTED. DRESSING C/D/I. NO CHANGES TO PEDAL PULSES, CONTINUES TO HAVE A SLIGHTLY WEAKER BUT PALPABLE PULSE TO RIGHT FOOT. WARM FEET BILATERALLY.DR. HADDAD MADE AWARE. NEW ORDERS FOR U/S OF BLE PLACED.
--- NOTE | 2025-08-11 05:58 | XR_ITS ---
Examination: Arterial duplex lower extremity study. Date and time of exam: August 11, 2025, 0913 hours INDICATIONS: Decreased pulses right lower extremity and groin pain today, status post groin angiogram yesterday Findings: Duplex sonographic imaging of the lower extremity arteries using B-mode/Fraser scale imaging and Doppler spectral analysis and color flow. Ankle brachial indices have been recorded. Right common femoral artery demonstrates triphasic flow. Right superficial femoral artery demonstrates triphasic flow. Right popliteal artery demonstrates triphasic flow. Right posterior tibial artery demonstrated triphasic flow. No right ankle-brachial index Left common femoral artery demonstrates triphasic flow. Left superficial femoral artery demonstrates triphasic flow. Left popliteal artery demonstrates triphasic flow. Left posterior tibial artery demonstrated triphasic flow. Left ankle/brachial index is 1.0. Impression: No significant peripheral obstructive arterial disease
--- NOTE | 2025-08-11 07:37 | PD.IMPROG ---
Documentation for date of: 08/11/25 Subjective Subjective Interval history: Patient did undergo cardiac cath and coronary angiogram Found to have 100% subacute occlusion of the RCA Patient has abnormal anatomy including requirement for long catheters Currently being planned to be transferred to the appropriate facility Exam Vital Signs Temp Pulse Resp BP Pulse Ox O2 Del Method 97.7 F 72 17 118/73 93 L CPAP 08/11/25 04:00 08/11/25 04:00 08/11/25 04:00 08/11/25 04:00 08/11/25 04:00 08/11/25 04:00 Routine HEENT Exam Head: Present normocephalic and atraumatic Eye: Present EOMI and PERRL ENT: Present mucous membranes moist Routine Neck Exam Neck: Present supple and trachea midline Routine Respiratory Exam Respiratory: Present chest non-tender, lungs clear, normal breath sounds and no resp distress Routine Cardiovascular Exam Cardiovascular: Present RRR Routine Abdominal Exam Abdominal: Present soft and normoactive bowel sounds Routine Extremities Exam Extremities: Present full ROM Routine Skin Exam Skin: Present intact, dry and warm Routine Neurological Exam Neurological: Present alert, oriented X3 and CN II-XII intact Routine Psychiatric Exam Psychiatric: Present normal affect and normal thought process Objective Labs 08/11/25 03:35 08/11/25 03:35 Labs: Laboratory Results - last 24 hr 08/10/25 08/10/25 08/11/25 12:21 20:15 03:35 WBC 9.1 RBC 5.41 Hgb 16.5 H Hct 50.3 MCV 93 MCH 30.5 MCHC 32.8 RDW Std Deviation 52.2 H Plt Count 181 Neut % (Auto) 51 Lymph % (Auto) 34 [facility] % (Auto) 13 H Eos % (Auto) 1 Baso % (Auto) 1 Neut # (Auto) 4.6 Lymph # (Auto) 3.1 [facility] # (Auto) 1.2 H Eos # (Auto) 0.1 Baso # (Auto) 0.1 Immature Gran # (Auto) 0.06 H Absolute Nucleated RBC 0.00 Immature Gran % 1 H Nucleated RBC % 0 APTT 25.7 D 50.6 H D 63.6 H D Sodium 141 Potassium 4.3 Chloride 109 H Carbon Dioxide 25.1 Anion Gap 7 BUN 19 Creatinine 1.2 Estim Creat Clear Calc 89.2 eGFR > 60 BUN/Creatinine Ratio 16 Glucose 120 H Calculated Osmolality 284 Calcium 9.2 Corrected Calcium 9.2 Phosphorus 3.8 Magnesium 2.0 Total Bilirubin 0.4 AST 60 H ALT 107 H Alkaline Phosphatase 58 Total Protein 6.8 Albumin 4.3 Globulin 2.5 Albumin/Globulin Ratio 1.7 Assessment & Plan A&P Narrative Awaiting transfer to the appropriate facility for intervention Time Spent With Patient Time: Total time spent is greater than 50% in coordination of care (as documented) at patient's floor/unit and/or counseling patient:
--- NOTE | 2025-08-11 07:43 | PC.NURSE ---
Dr. Hart confirmed that pt. will need heparin drip on transport so charge nurse Luis Antonio aware to notify rooming house keeper that RN for transport is needed to manage heparin drip on transport. also aware that pt. complaining of pain down right leg with movement and tenderness with touch to angio site at groin - but, no swelling or edema at insertion site. Dressing is clean dry and intact. Pt. right pedal pulse is weaker that left. BLE us ordered and pending. Dr. Hart aware.
[2025-08-11] MEDS: CLOPIDOGREL BISULFATE 75 MG TABLET PO (08:04)
[2025-08-11] MEDS: LOSARTAN POTASSIUM 25 MG TABLET 50 MG PO (08:04)
[2025-08-11] MEDS: METOPROLOL TARTRATE 25 MG TABLET 50 MG PO (08:04)
[2025-08-11] MEDS: ASPIRIN EC 81 MG TABEC PO (08:05)
--- NOTE | 2025-08-11 08:54 | ESPR_ITS ---
<Statement entered by Jessica Chicas MD - 08/11/25 16:43> Patient was seen and examined by me personally. I have directly supervised and reviewed documentation by the team resident and agree with its findings with any exceptions or additional findings as below. Plan of care was discussed with the attending, Dr. Harkins. Patient seen at bedside still in good spirits, denies any chest pain symptoms although does endorse severe pain in the right upper medial thigh/groin area which shoots down to the mid medial thigh. Thoroughly assessed the area of cardiac cath in the right groin and site is clean without obvious signs of hematoma, bleeding, or bruising. Patient was accepted at [facility] for transfer for cardiac catheterization with the adequate size catheter however still waiting on bed availability. He otherwise remains hemodynamically stable. Jessica Chicas, PGY-3 Documentation for date of: 08/10/25 Subjective Subjective Interval history: Troponin increased to 10.270, no new chest pain reported. Cardiac cath noted right coronary artery appears occluded unable to cath patient given patient anatomy and guiding catheters not long enough. Per cardiology, transfer for urgent cardiac catheterization at tertiary care facility was initiated. Exam Vital Signs Temp Pulse Resp BP Pulse Ox O2 Del Method 97.1 F 75 20 135/80 H 96 Room Air 08/11/25 07:57 08/11/25 08:04 08/11/25 07:57 08/11/25 08:04 08/11/25 07:57 08/11/25 07:57 Narrative Exam General: A/O x3, no acute distress, well-nourished, well-developed, obese Eyes: PERRL, EOMI. Anicteric, vision grossly intact. Ears: No ear pain, no ear discharge, Hearing grossly intact. Nose: No nasal discharge. Mouth/Throat: Moist mucous membranes, no redness, no lesions. Neck: Neck supple, non-tender, no cervical lymphadenopathy. Lungs: Clear JOSE to auscultation and percussion, No accessory muscle use. Cardio: Normal S1/S2, regular rhythm, no murmurs, no JVD or carotid bruits, no chest pain on palpation Abdomen: Soft, non-tender, no palpable masses, peristalsis present, no guarding or rebound. Extremities: Symmetrical, no significant deformities, no peripheral edema , non-tender, peripheral pulses present. Skin: No rashes, no lesions, warm to touch. Neuro: No focal neurological deficits. Psych: Cooperative, appropriate mood and effect. Objective Labs 08/11/25 03:35 08/11/25 03:35 Labs: Laboratory Results - last 24 hr 08/10/25 08/10/25 08/11/25 12:21 20:15 03:35 WBC 9.1 RBC 5.41 Hgb 16.5 H Hct 50.3 MCV 93 MCH 30.5 MCHC 32.8 RDW Std Deviation 52.2 H Plt Count 181 Neut % (Auto) 51 Lymph % (Auto) 34 [place] % (Auto) 13 H Eos % (Auto) 1 Baso % (Auto) 1 Neut # (Auto) 4.6 Lymph # (Auto) 3.1 [place] # (Auto) 1.2 H Eos # (Auto) 0.1 Baso # (Auto) 0.1 Immature Gran # (Auto) 0.06 H Absolute Nucleated RBC 0.00 Immature Gran % 1 H Nucleated RBC % 0 APTT 25.7 D 50.6 H D 63.6 H D Sodium 141 Potassium 4.3 Chloride 109 H Carbon Dioxide 25.1 Anion Gap 7 BUN 19 Creatinine 1.2 Estim Creat Clear Calc 89.2 eGFR > 60 BUN/Creatinine Ratio 16 Glucose 120 H Calculated Osmolality 284 Calcium 9.2 Corrected Calcium 9.2 Phosphorus 3.8 Magnesium 2.0 Total Bilirubin 0.4 AST 60 H ALT 107 H Alkaline Phosphatase 58 Total Protein 6.8 Albumin 4.3 Globulin 2.5 Albumin/Globulin Ratio 1.7 Quality Measures Quality Measures none Advance care planning discussed with:: other Assessment & Plan Assessment Current Active Medications: Generic Name Dose Route Start Last Admin Trade Name Kiya PRN Reason Stop Dose Admin Acetaminophen 650 mg 08/08/25 15:14 Acetaminophen 325 Mg Tablet PO 09/07/25 15:13 Q6H PRN Fever >100.4 Acetaminophen 650 mg 08/08/25 15:14 Acetaminophen 325 Mg Tablet PO 09/07/25 15:13 Q6H PRN PAIN SCALE 1-3 (mild Hydrocodone Bitart/Acetaminophen 1 tab 08/08/25 15:14 Hydrocodone/Apap 5/325 Tablet PO 08/13/25 15:13 Q4HR PRN PAIN SCALE 4-6 (Moderate Allopurinol 300 mg 08/08/25 15:45 08/11/25 08:04 Allopurinol 100 Mg Tablet PO 09/07/25 15:44 300 mg QDAY TAWANNA Administration Aspirin 81 mg 08/09/25 09:00 08/11/25 08:05 Aspirin Ec 81 Mg Tabec PO 09/08/25 08:59 81 mg QDAY TAWANNA Administration Atorvastatin Calcium 40 mg 08/10/25 21:00 08/10/25 20:10 Atorvastatin Calcium 20 Mg Tablet PO 09/09/25 20:59 40 mg HS TAWANNA Administration Clopidogrel Bisulfate 75 mg 08/09/25 14:00 08/11/25 08:04 Clopidogrel Bisulfate 75 Mg Tablet PO 09/08/25 13:59 75 mg QDAY TAWANNA Administration Heparin Sodium/Dextrose 25,000 unit in 250 mls @ 10.002 mls/hr 08/08/25 14:30 08/11/25 04:39 Heparin In D5w Ivpb IV 08/22/25 14:29 19.35 units/kg/hr .Q24H TAWANNA 26.331 mls/hr Protocol Titration 7.35 UNITS/KG/HR Labetalol HCl 10 mg 08/08/25 15:50 Labetalol Inj 5 Mg/Ml Vial 4 Ml IVP 09/07/25 15:49 Q4H PRN SBP>180 or DBP>110 Levothyroxine Sodium 88 mcg 08/09/25 06:00 08/11/25 05:06 Levothyroxine Sodium 88 Mcg Tablet PO 09/08/25 05:59 88 mcg ACBR TAWANNA Administration Losartan Potassium 50 mg 08/08/25 15:45 08/11/25 08:04 Losartan Potassium 25 Mg Tablet PO 09/07/25 15:44 50 mg QDAY TAWANNA Administration Metoprolol Tartrate 50 mg 08/08/25 15:30 08/11/25 08:04 Metoprolol Tartrate 25 Mg Tablet PO 09/07/25 15:29 50 mg BID TAWANNA Administration Plan Patient is a 65 yo M with PMH of HTN, HLD, DM, A-fib, A-flutter, PE, hypothyroidism, gout, low testosterone, BRYAN presenting to the ED on 08/08 with new-onset chest pain. Patient admitted for NSTEMI vs PE workup. #ACS #CAD #Hx of A-fib #Hx of A-flutter #Hx of PE Patient had cramping pain, not reproducible on palpation radiating to L arm since this AM. EKG #1 0919- normal sinus rhythm, rate 80, left axis deviation, no ectopy, Q wave in leads 2, 3, and AVF, questionable elevation in the precordial leads but consulted with Dr. Chung who states it does not look like a STEMI. EKG #2- 1300, normal sinus rhythm, rate 78, left axis deviation, no ectopy, no signs of acute ischemia, Q wave in leads 2, 3, and AVF Troponin- 0.38 on admission, latest 3.879 Patient has had a-fib and a-flutter with ablations on Eliquis CTA negative Plan: Cardiology consulted, attempted cath, need to transfer to outside facility due to lack of appropriate equipment here On heparin drip Aspirin 81 qday Atorvastatin 40 daily Metoprolol tartrate 50 BID Losartan 50 Trend troponin q4h until peaked Echo ordered #Hx DM Patient takes metformin at home BG 119 this morning Plan: ISS step 1 #Polycythemia #Low testosterone on treatment #BRYAN Plan: Continue with outpatient phlebotomies CPAP at night #Hx HTN Plan: As above, plus labetalol 10 q4h prn if SBP > 180 or DBP > 110 #Hx gout #Hx hypothyroidism Resume home allopurinol and levothyroxine Disposition: Transfer DVT prophylaxis: Heparin protocol GI prophylaxis: Diet: Cardiac, NPO after midnight Lines: PIV CODE STATUS: Full This case was discussed with my attending physician, Dr. Harkins, and senior resident, Dr. Chicas. Aaron Russo, PGY1 Attending Provider Attestation/Addendum Margarita Elizabeth DO, attest that I was physically present for the saldana portions of the service and evaluated the patient with the resident and I reviewed and discussed the case with the resident and agree with the resident's findings and plans of care as documented above Patient seen and evaluated this AM. He states that he is feeling well, denies any further episodes of chest pain or shortness of breath. He remains on heparin drip, pending transfer for cardiac catheterization. Patient remains stable for transfer. He remains hemodynamically stable. Patient is concerned that he failed eliquis, assuming he developed a clot resulting in NSTEMI. Discussed with patient he may be a better candidate for xarelto given BMI, but he states that he has an appointment with his flexographic press plate setter in [place] in 1.5 weeks, which he will have this discussion. Patient also f/u with hematology.
--- NOTE | 2025-08-11 08:58 | ESDS_ITS ---
<Statement entered by Margarita Harkins DO - 08/11/25 15:48> I, Margarita Harkins DO, attest that I was physically present for the saldana portions of the service and evaluated the patient with the resident and I reviewed and discussed the case with the resident and agree with the resident's findings and plans of care as documented above <Statement entered by Jessica Chicas MD - 08/11/25 15:37> Patient was seen and examined by me personally. I have reviewed the below documentation by the team resident and agree with its findings with any exceptions as below. Discharge plan was discussed with the attending, Dr. Harkins. Jessica Chicas, PGY-3 Planned Discharge Date 08/11/25 DS: Providers Provider Date of admission: 08/08/25 19:03 Primary care physician: Physician Rhina Primary/Family Admitting Provider: Dale Powell MD Attending Provider on Admission: Dale Powell MD Consults: 08/08/25 15:30 Consult to Cardiology Stat Comment: Consulting Provider: Apolinar Chung 08/10/25 11:05 Referral - [facility] Chief Stat Service Needed for Transfer: Interventional Cardiology Addl Comments:: NSTEMI. Our facility does not have long enough catheter for cardiac cath due to patient's height. Will need higher level of care i.e. [place]/ [place] per Dr Chung. He will take the sign out if accepted Attending Provider on DC: Margarita Harkins DO Discharging Provider: Margarita Harkins DO DS: Diagnosis Problem List Completed Was Problem List Reviewed/Reconciled?: Yes Hospital Course Hospital Course Hospital course: Hospital Course: Patient is a 65-year-old gentleman with PMH of HTN, HLD, CAD (cath no stents), T2DM, a-fib and a-flutter, PE-on eliquis, history of Factor V Leiden (FVL), hypothyroidism, gout, low testosterone on testosterone therapy, BRYAN who presented to ED on 08/08/2025 with chief complaint of chest pain that began on the morning, and woke him up from sleep, he reported never having similar episode of chest pain, reported radiating to left arm, and improved with 3 aspirin before coming to ED. Pain is not positional or reproducible, and no orthopnea, PND, nausea, vomiting, diaphoresis, fever. ER Course, Troponin was 0.38 that trended up to 0.843 with EKG obtained no ST elevation noted. Cardiology consulted ER, Dr. Chung, who started patient on heparin drip, 325 mg aspirin chewable given in the ED, followed by scheduled aspirin 81 mg once daily, metoprolol titrate, losartan, atorvastatin, plavix 75 mg. CTA chest was negative for pulmonary embolism. Troponin trended, increased to 10.270, no new chest pain reported in hospital. Cardiac cath on 08/10 noted right coronary artery appears occluded unable to cath patient given patient anatomy and guiding catheters not long enough. Per cardiology, Transfer for urgent cardiac catheterization at tertiary care facility was initiated, and patient is stable for transfer to tertiary care facility. On 08/11, patient [facility]. Discharge Instructions: Transfer patient to tertiary care facility. Problem List: #NSTEMI, likely type I #ACS #Factor V Leiden #CAD #Hx of A-fib #Hx of A-flutter #Hx of PE #Hx DM #Polycythemia #Low testosterone on treatment #BRYAN #Hx HTN #Hx gout #Hx hypothyroidism This case was discussed with my attending physician, Dr. Harkins, and senior resident, Dr. Hart. Aaron Russo, PGY1 Senior Resident Attestation: I have discussed the case with supervising physician and manager internet physician involved in the care of patient. I personally saw and examined patient and discussed the assessment and plan with the entire medical team, including attending. I agree with assessment and plan as documented above. - The patient's plan was discussed with attending Dr. Torin Hart MD PGY2 Internal Medicine Status at Discharge Functional status at discharge: independent ambulation Overall status at discharge: patient is not back to baseline Time Spent with Patient Time attestation: Total time spent providing and/or coordinating discharge services: Time spent: Greater than 30 minutes Exam Vital Signs Temp Pulse Resp BP Pulse Ox O2 Del Method 97.1 F 75 20 135/80 H 96 Room Air 08/11/25 07:57 08/11/25 08:04 08/11/25 07:57 08/11/25 08:04 08/11/25 07:57 12/31/25 07:57 Narrative Exam General: A/O x3, no acute distress, well-nourished, well-developed, obese Eyes: PERRL, EOMI. Anicteric, vision grossly intact. Ears: No ear pain, no ear discharge, Hearing grossly intact. Nose: No nasal discharge. Mouth/Throat: Moist mucous membranes, no redness, no lesions. Neck: Neck supple, non-tender, no cervical lymphadenopathy. Lungs: Clear JOSE to auscultation and percussion, No accessory muscle use. Cardio: Normal S1/S2, regular rhythm, no murmurs, no JVD or carotid bruits, no chest pain on palpation Abdomen: Soft, non-tender, no palpable masses, peristalsis present, no guarding or rebound. Extremities: Symmetrical, no significant deformities, no peripheral edema , tenderness of R leg near cath site, peripheral pulses present but weaker on R Skin: No rashes, no lesions, warm to touch. Neuro: No focal neurological deficits. Psych: Cooperative, appropriate mood and effect. Discharge Plan Plan Patient Disposition: Xfer Other Patient condition on transfer: Stable Prescriptions/Referrals Prescriptions/Med Rec: No Action losartan 100 mg tablet 100 mg PO DAILY allopurinol 300 mg tablet 300 mg PO DAILY levothyroxine 88 mcg tablet 88 mcg PO DAILY rosuvastatin 5 mg tablet 5 mg PO .BEFORE BED TIME diltiazem HCl [DILT-XR] 180 mg capsule,ext.rel 24h degradable 180 mg PO BID Eliquis 5 mg tablet 5 mg PO Q12H metformin 1,000 mg tablet 1,000 mg PO BID thyroid (pork) [CAFETERIA DIRECTOR Thyroid] 120 mg tablet 120 mg PO QDAY Referrals: No Primary/Family,Physician [Primary Care Provider] Patient/Caregiver Discharge Instructions Print Language: Martiniquais Stand Alone Forms: [facility] Award Info., Patient Portal Info Letter Quality Discharge Quality Measures none
--- NOTE | 2025-08-11 09:00 | PC.CC ---
Addendum entered by Vaishali Mills RN 08/11/25 09:12: Called [facility] spoke to Desirae to initiate transfer, however pt declined at this time. They are at capacity Sabrina peralta/ Anthony called back to decline patient. Neuro surgery does not work on paraspinal issues. rec for thoracic surgeon. Addendum entered by Vaishali Mills RN 08/11/25 09:04: per marko Argueta, pt will need to transfer with hep gtt. no staff avail at this time. Original Note: called [facility] for status on bed, spoke to [facility]. She stated bed is still pending.
--- NOTE | 2025-08-11 09:07 | PC.SS ---
Follow up note: Pt is waiting for higher level of care transfer.
--- NOTE | 2025-08-11 09:15 | PC.CC ---
Addendum entered by Vaishali Mills RN 08/11/25 17:11: 1708: received call from Aretha to inform me that the charge nurse and bedside nurse declined to take report at this time. She will call her back in 15 min. Transport set up for 1899 165: called and spoke to [facility] to provide transport ETA of 1899. Also informed her that the bedside nurse has been calling the report number but is unable to get through. She stated to have the nurse call the transfer center and they will transfer the call to the unit. Informed Aretha the bedside nurse to call [phone] for report. Addendum entered by Vaishali Mills RN 08/11/25 16:42: Received call from [facility], zeeshan to stop heparin for transport and they will restart hep gtt when pt arrives to [facility]. Informed Dr. Harkins, she agreed, order received to stop heparin gtt for transport Addendum entered by Vaishali Mills RN 08/11/25 16:06: correct time is 1546 not 1346 for my last entry Addendum entered by Vaishali Mills RN 08/11/25 15:49: 1346: Call [facility], spoke to Chula, she will reach out to the provider north and call back. 1530: called [facility], spoke to Adamaris. Reach declined d/t weather. Reach ground unable to accomodate transport. Spoke to Dr. Harkins about the hep gtt. She asked i reach out to the accepting MD at [facility] if hep gtt can be stopped and utilize Lovenox for the transport. 1518: x1 CD created, transfer packet completed. Handoff report given to bedisde nurse Aretha 1446: spoke to [facility], she provided the bed information.Room 5106B. call report to [phone] Original Note: 0900: called [facility] to f/u on status of bed, per Vale bed is still pending. Received information from marko Argueta that pt will need to transfer with Hep gtt. no staff avail at this time.
[2025-08-11] MEDS: Heparin/D5w 25K 250 ML Ivpb 25,000 UNIT/250 ML BAG 26.331 UNIT IV (09:29)
[2025-08-11 11:28] LABS: Partial Thromboplastin Time 49.0 Seconds (22.0-36.0)
[2025-08-11] MEDS: HEPARIN SOD INJ 5000 UNIT/ML VIAL 2000 UNIT IVP (12:39)
--- NOTE | 2025-08-11 17:09 | PC.NURSE ---
Called to give report on pt. to charge nurse per transfer nurse Zuluaga, Charge nurse at [facility] refused to take report and sent the call to bedside nurse Juan. MANA Martinez also refused to take report stating I just got a patient from ER, can you call me back? or I can call you back. MANA Arora advised Juan RN that pt. can be picked up any time between 1700 and 1900 and there is very particular information to be given to RN for transfer of this pt. MANA Martinez still refused to take report at this time and told MANA Arora I will call you back or you can call me back. Transfer RN at [facility] Zan aware of issue.
--- NOTE | 2025-08-11 17:23 | PC.NURSE ---
Report given to MANA grullon at [facility]. Juan RN aware that per Multimedia Authoring Specialist order heparin drip will be held at time of transfer [facility] and is to be resumed immediately upon arrival to [facility] per Miscellaneous nursing order.
== END 2025-08-11 18:25 | disposition short-term general hospital (02) | DRG 281 ==
LOC: SERX 16:24 → SERHOLD 19:20 → S2NX 21:20
PROVIDERS: Emergency Medicine; Internal Medicine; Nurse Practitioner Family; Student in an Organized Health Care Education/Training Program; Admitting Provider Student in an Organized Health Care Education/Training Program; Emergency Provider Emergency Medicine; Visit Provider Student in an Organized Health Care Education/Training Program
PROC: 4A023N7 Measurement of Cardiac Sampling and Pressure, Left Heart, Percutaneous Approach (ICD-10-PCS; principal; 2025-08-10 09:00)
DX: I21.4 Non-ST elevation (NSTEMI) myocardial infarction (principal); D68.51 Activated protein C resistance; I48.92 Unspecified atrial flutter; I48.91 Unspecified atrial fibrillation; E03.9 Hypothyroidism, unspecified; E11.9 Type 2 diabetes mellitus without complications; I10 Essential (primary) hypertension; M10.9 Gout, unspecified; G47.33 Obstructive sleep apnea (adult) (pediatric); E78.5 Hyperlipidemia, unspecified; I25.10 Atherosclerotic heart disease of native coronary artery without angina pectoris; D75.1 Secondary polycythemia; E78.00 Pure hypercholesterolemia, unspecified; Z79.84 Long term (current) use of oral hypoglycemic drugs; Z86.711 Personal history of pulmonary embolism; Z88.2 Allergy status to sulfonamides; Z79.01 Long term (current) use of anticoagulants; Z87.891 Personal history of nicotine dependence; Z79.890 Hormone replacement therapy
CPT/HCPCS: 36415; 71045; 71275; 80053; 80061; 83036; 83690; 83735; 83880; 84100; 84443; 84484; 85025; 85610; 85730; 93005; 93306; 93925; 94762; 96374; 96375; 99152; 99153; 99285; A4649; C1751; C1760; C1769; C1887; C1894; J0360; J0461; J1200; J1643; J1644; J2250; J2312; J2371; J2919; J3010; J3475; J3490; Q9967; A9270; C1725; J2305